=== PATIENT | female | born 1940 | race Caucasian/White ===

== ENCOUNTER 2017-05-19 10:06 | Emergency (ER) | payer MEDICARE ==
[~2017-05-19] VITALS: Ht 162.6 cm; Wt 86.2 kg
[2017-05-19] MEDS ORDERED: ULTRAM50 MG PO (10:55)
[2017-05-19] MEDS ORDERED: TRAZODONE HCL100 MG PO (10:55)
[2017-05-19] MEDS ORDERED: NEURONTIN600 MG PO (10:56)
== END 2017-05-19 12:20 | disposition home or self-care (01) ==
LOC: ED 10:06
DX: Z53.21 Procedure and treatment not carried out due to patient leaving prior to being seen by health care provider (principal)
CPT/HCPCS: 81001

== ENCOUNTER 2017-05-25 12:03 | Emergency (ER) | payer MEDICARE ==
[~2017-05-25] VITALS: Ht 162.6 cm; Wt 86.2 kg
[~2017-05-25 12:03] MED LIST: NEURONTIN600 MG PO; TRAZODONE HCL100 MG PO; ULTRAM50 MG PO
[2017-05-25] MEDS ORDERED: WELLBUTRIN SR150 MG PO (12:20)
[2017-05-25] MEDS ORDERED: CYMBALTA20 MG PO (12:21)
[2017-05-25] MEDS ORDERED: PYRIDIUM200 MG PO (12:45)
[2017-05-25] MEDS ORDERED: MACROBID 100 M100 MG PO (13:21)
[2017-05-25] MEDS ORDERED: AUGMENTIN 875-1 EACH PO (13:24)
== END 2017-05-25 14:30 | disposition home or self-care (01) ==
LOC: ED 12:03
DX: N39.0 Urinary tract infection, site not specified (principal); Z79.899 Other long term (current) drug therapy
CPT/HCPCS: 80053; 81001; 83605; 83690; 83880; 85025; 87088; 96361; 96374; 96375; 99283; J2405; J3010; J7040

== ENCOUNTER 2017-12-25 10:04 | Emergency (ER) | payer MEDICARE ==
[~2017-12-25] VITALS: Ht 162.6 cm; Wt 88.0 kg
[~2017-12-25 10:04] MED LIST changes: +AUGMENTIN 875-1 EACH PO; +CYMBALTA20 MG PO; +MACROBID 100 M100 MG PO; +PYRIDIUM200 MG PO; +WELLBUTRIN SR150 MG PO
[2017-12-25] MEDS ORDERED: CLARITIN10 M2 PO (10:30)
[2017-12-25] MEDS ORDERED: OMEPRAZOLE20 MG PO (10:31)
[2017-12-25] MEDS ORDERED: LEVOTHYROXINE50 MCG PO (10:31)
[2017-12-25] MEDS ORDERED: ZESTORETIC 20-1 EAC1 PO (10:31)
[2017-12-25] MEDS ORDERED: AMLODIPINE BESYL5 MG PO (10:32)
[2017-12-25] MEDS ORDERED: NOVOLOG FL100 UNIT/1 SUB-Q (10:32)
== END 2017-12-25 13:40 | disposition home or self-care (01) ==
LOC: ED 10:04
DX: R42 Dizziness and giddiness (principal); T40.4X5A Adverse effect of other synthetic narcotics, initial encounter; T42.6X5A Adverse effect of other antiepileptic and sedative-hypnotic drugs, initial encounter; E11.9 Type 2 diabetes mellitus without complications; I10 Essential (primary) hypertension; Z79.4 Long term (current) use of insulin; Z79.899 Other long term (current) drug therapy
CPT/HCPCS: 81001; 99284

== ENCOUNTER 2019-02-05 15:12 | Inpatient (IN) | payer MEDICARE ==
[~2019-02-05] VITALS: Ht 162.6 cm; Wt 78.6 kg
--- NOTE | ~2019-02-05 | DS ---
[facility] [address], [place] [address] Draft ADMISSION DATE: 02/08/2019 DISCHARGE DATE: 02/12/2019 REASON FOR ADMISSION: This 79-year-old white woman is a patient of Dr. Anastacia Blackmon of [place] from [facility]. In the past few weeks, she has been having episodes of right upper abdominal pain. Her evaluation included a gallbladder ultrasound, which was performed on December 30, 2018, showing no sign of stones and subsequently CCK-HIDA test on January 21, 2019, showing reproduction of her symptoms with right upper abdominal pain and ejection fraction of only 9%. Plans were being made for referral for consideration of cholecystectomy. In the days leading up to current admission, the patient had severe right upper abdominal pain, presented to the emergency room. She had subscapular right sided pain as well. She was evaluated by Dr. Neely with strong suspicion of acute acalculous cholecystitis. She was admitted for further evaluation and care. PHYSICAL EXAMINATION: GENERAL: At time of admission, showed a somewhat obese white woman, who looks to be not systemically toxic. Mucous membranes were mildly moist only. Trachea is midline. CHEST: Clear. HEART: Regular without murmur. ABDOMEN: Obese, but soft. There is tenderness in the epigastric and right subcostal area, most consistent with acute cholecystitis. LABORATORY STUDIES: Showed white count 9.2, hematocrit 32.7, platelets 150,000. Lipase 46. Chem profile, creatinine 1.26, glucose 101, calcium 10.7. Her lipase is 46. Urinalysis was negative, though she did have 5 white cells per high-power field. Ultrasound had shown a visible gallbladder wall without associated stones. HOSPITAL COURSE: The patient was admitted and given intravenous fluid resuscitation, parenteral pain medication, IV antibiotics. On February 06, 2019, she underwent laparoscopic cholecystectomy with intraoperative cholangiogram as well as laparoscopic liver biopsy for what was found to be a medial segment of left lobe of liver inflammatory change suggestive of low-grade cirrhosis. This was unexpected of course. Gallbladder was acutely inflamed and chronically inflamed as well. Cholangiogram was normal. She had omental adhesions inferior to the umbilicus and a supraumbilical incision had been used for operation. The operation was very straightforward overall. She was kept overnight for continued monitoring and by five in the morning on postop day 1, she seemed somewhat PATIENT NAME: CARLO MATHIAS DISCHARGE SUMMARY DATE OF : 40 REPORT #: [id number] PHYSICIAN: SATURNINO STAHL MD PCP: TIFFANY BLACKMON MD REPORT IS CONFIDENTIAL AND NOT TO BE RELEASED WITHOUT AUTHORIZATION [facility] [address] [place], [place] [address] Draft confused and distended, not herself, and had increasing drainage from the umbilical and epigastric incision sites somewhat bloody. She had not eaten that well postoperatively, but had been voiding well. She had no nausea, vomiting or retching. Her examination showed her to be somewhat pale and not jaundiced in any way. A CBC was obtained which showed a hematocrit of 21 (preoperative 32). Transfusion was promptly initiated, and given the findings and possibility of intraabdominal bleeding, she was returned to surgery where she underwent laparoscopy. A considerable amount of clot was noted in the central abdomen. Clot was suctioned free. Examination of the liver showed it to be hemostatic as regard to the biopsy site, in the subhepatic space though there was small amount of blood, it did not appear to be any active bleeding. Examination throughout was taken elsewhere including the region of the umbilicus. There was no sign of ongoing bleeding in the area. Two drains were placed, one lateral to the liver and the other in the subhepatic space. The patient remained reasonably hemodynamically stable with a systolic blood pressure of 105 and a pulse of 82, but within several hours, the drains began showing a considerable amount of fresh bleeding. Her blood pressure normalized to 140 systolic with pulse of 90 to 95, and given she was hemodynamically stable, a CT scan was performed with IV contrast despite a somewhat elevated creatinine (1.6). The noncontrast CT showed no sign of bleeding, but the contrast study did show a blush in the area of the omentum to the right and inferior to the umbilicus itself. On that basis, she underwent laparotomy through a midline incision in the region of the umbilicus and prior low midline incision. Considerable amount of clot and so forth was evacuated from the abdomen. The abdomen had no sign of bleeding. As the bleeding was occultly localized in the omentum inferior to the umbilicus itself, omentectomy was undertaken for control of bleeding. Irrigation was undertaken. There was no further bleeding. The drains that were placed previously were left in situ. She was carefully monitored postoperatively and showed no sign of recurrent bleeding. She did have a drift of her hematocrit. She had been given 4 units of fresh frozen plasma as well as platelets considering she ultimately had a 7-unit transfusion overall. The patient had a fair amount of confusion, so forth. This was attributed to essentially three general anesthetics within a 48-hour period. Additionally, she had this significant transfusion as noted. She was noted to have no further bleeding and her drains were removed. A small dehiscence of the superior aspect of the incision was secured with interrupted nylon suture at the bedside under local anesthesia, this represented only skin dehiscence and it was quite limited also. She had progressive improvement and was transferred to the floor where she was advanced in her diet. By time of discharge, she is ambulating well, tolerating a regular diet completely well as well as oral medication. Her disorientation improved quite markedly PATIENT NAME: CARLO MATHIAS DISCHARGE SUMMARY DATE OF : 40 REPORT #: [id number] PHYSICIAN: SATURNINO STAHL MD PCP: TIFFANY BLACKMON MD REPORT IS CONFIDENTIAL AND NOT TO BE RELEASED WITHOUT AUTHORIZATION [facility] [address] [place], [place] [address] Draft and she is back to baseline at time of discharge. I suspect the anesthesia as well as some minimal opiate use postoperatively was responsible for that. Consultation was undertaken with the medical hospitalist. Her medications were somewhat adjusted to include amlodipine as an adjunct to blood pressure control. FOLLOWUP PLAN: She does have an abdominal binder in place. She is to return to see me in approximately 4 weeks. She will continue to follow up with her usual physician Leonidas [facility]. MEDICATIONS: Her new medications will include: 1. Amlodipine 10 mg p.o. daily for hypertension #30, refill none. 2. Extra-strength Tylenol 500 mg tablets two tabs q.6 hours p.r.n. pain #60. 3. Lisinopril 10 mg p.o. daily. 4. Calcium carbonate tablet one p.o. 3-4 times daily. 5. Atorvastatin 20 mg p.o. daily. 6. Metoprolol 50 mg p.o. daily. 7. Cymbalta 60 mg p.o. daily. 8. Escitalopram 5 mg p.o. daily. 9. Trazodone 20 mg p.o. daily. 10. Metformin (Glucophage) 500 mg p.o. b.i.d. 11. Actos 15 mg p.o. daily. 12. Synthroid 50 mcg p.o. daily. She will discontinue her diclofenac and meloxicam and note is made of amlodipine change of 5 mg to 10 mg. DISCHARGE DIAGNOSES: 1. Acalculous chronic and acute cholecystitis, status post laparoscopic cholecystectomy with intraoperative cholangiogram. 2. Postoperative bleeding requiring initially laparoscopy, peritoneal lavage, placement of drains and subsequent open laparotomy with partial omentectomy for intraparenchymal bleeding of omentum and hemoperitoneum. 3. Hypertension. 4. Diabetes mellitus. 5. Hypothyroidism. 6. Anxiety. 7. Dyslipidemia. PATIENT NAME: CARLO MATHIAS DISCHARGE SUMMARY DATE OF : 40 REPORT #: [id number] PHYSICIAN: SATURNINO STAHL MD PCP: TIFFANY BLACKMON MD REPORT IS CONFIDENTIAL AND NOT TO BE RELEASED WITHOUT AUTHORIZATION [facility] [address] [place] [id number] Draft MD BRIDGET Davis/PARISL /[id number] cc: DO Mario Ayoub MD Copies: ANASTACIA BLACKMON LOHITH VEERAPPA MD ~ PATIENT NAME: CARLO MATHIAS DISCHARGE SUMMARY DATE OF : 40 REPORT #: [id number] PHYSICIAN: SATURNINO STAHL MD PCP: TIFFANY BLACKMON MD REPORT IS CONFIDENTIAL AND NOT TO BE RELEASED WITHOUT AUTHORIZATION
[~2019-02-05 15:12] MED LIST changes: +AMLODIPINE BESYL5 MG PO; +CLARITIN10 M2 PO; +LEVOTHYROXINE50 MCG PO; +NOVOLOG FL100 UNIT/1 SUB-Q; +OMEPRAZOLE20 MG PO; +ZESTORETIC 20-1 EAC1 PO
--- OUTSIDE RECORDS SUMMARY | 2019-02-05 15:14 | XMS ---
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 [place] VISIT COUNT (12 MO.) Jamir Abreu TOTAL 1 NOTE: Visits indicate total known visits. ED/UCC VISIT TRACKING (12 MO.) 02/05/2019 15:12 [facility] OR TYPE: Emergency COMPLAINT: - ABDOMINAL PAIN/ DIZZY INPATIENT VISIT TRACKING (12 MO.) No inpatient visits to display in this time frame [email or web address]
[2019-02-05] MEDS ORDERED: GLUCOPHAGE500 MG PO (15:53)
[2019-02-05] MEDS ORDERED: ACTOS15 MG PO (15:54)
[2019-02-05] MEDS ORDERED: LISINOPRIL10 MG PO (15:54)
[2019-02-05] MEDS ORDERED: METOPROLOL SUCC50 MG PO (15:55)
[2019-02-05] MEDS ORDERED: ESCITALOPRAM OXA5 MG PO (15:55)
[2019-02-05] MEDS ORDERED: ATORVASTATIN CA20 MG PO (15:56)
[2019-02-05] MEDS ORDERED: ONDANSETRON ODT8 MG PO (16:49)
--- NOTE | 2019-02-05 18:53 | NUR ---
184: PT ARRIVED TO MED-SURG VIA [facility] [employer]. PT ORIENTED TO THE ROOM AND SCD'S PLACED. PT STATES SHE HAS PAIN RATED AT A 7/10 IN HER RIGHT UPPER QUAD PAIN WHICH IS ACCEPTABLE TO HER AT THIS TIME. PT GIVEN CALL DE LEON AND INSTRUCTED IN IT'S USE.
--- NOTE | 2019-02-05 19:35 | NUR ---
patient needed assistance going to the restroom. She got dressed in her night gown and requested fresh ice water. nothing further was needed at this time.
--- NOTE | 2019-02-05 20:03 | NUR ---
ADMISSION COMPLETE, IV FLUIDS INFUSING PER EMAR WNL, PT RESTING IN BED, AOX4, APPROPRIATE, SCD'S ON, DR. STAHL HAS BEEN TO PT'S ROOM TO DISCUSS PROCEDURE SET FOR TOMORROW, PT ORIENTED TO ROOM. CALL LIGHT WITHIN REACH.
--- NOTE | 2019-02-05 20:27 | NUR ---
VITALS AND I&OS DONE AND CHARTED. HELPED PT TO THE BATHROOM AND BACK TO BED WITH HER FWW. INFORMED ROHINI ARENAS OF B\P
--- NOTE | 2019-02-05 20:30 | NUR ---
EVENING MEDS ADMINISTERED, PT'S VSS, PT RESTING IN BED, AOX4, APPROPRIATE, PT C/O PAIN RELATED TO RUQ, PRN PAIN MEDICATION GIVEN PER EMAR. PT TOLERATED WELL PT ON RA, PT'S BT ACTIVE, ABD TENDER, SCD'S ON. PT DENIES ANY NAUSEA OR VOMITING, NO FURTHER NEEDS AT THIS TIME. CALL LIGHT WITHIN REACH.
--- NOTE | 2019-02-05 21:51 | NUR ---
PT'S IV PUMP WAS BEEPING, IT IS INFUSING FINE NOW. PT IS TRYING TO REST AND DENIES FURTHER NEEDS. CALL LIGHT IS WITHIN REACH.
--- NOTE | 2019-02-05 23:45 | NUR ---
PT RESTING IN BED, EYES CLOSED, BREATHS EVEN, UNLABORED, NO NEEDS AT THIS TIME, CALL LIGHT WIHTIN REACH. FALL PRECAUTIONS IN PLACE. IV FLUIDS INFUSING PER EMAR WNL. SCD'S ON.
--- NOTE | 2019-02-06 00:28 | NUR ---
HELPED PT TO THE BATHROOM AND BACK TO BED WITH HER FWW. BEDSIDE TABLE AND CALL LIGHT IN REACH. SHE NEEDS NOTHING MORE AT THIS TIME.
--- NOTE | 2019-02-06 02:17 | NUR ---
PT UP TO BATHROOM WITH AHSAN MADERA, PT BACK TO BED, IV FLUIDS INFUSING PER EMAR WNL, SCHEDULED ABX ADMINISTERED, PT C/O 11/25 PAIN RELATED TO ABD, PT GIVEN PRN PAIN MEDICATION PER EMAR. PT DENIES FURTHER NEEDS AT THIS TIME, SCD'S ON, CALL LIGHT WITHIN REACH. FALL PRECAUTIONS IN PLACE.
--- NOTE | 2019-02-06 04:59 | NUR ---
PT AOX4, APPROPRIATE, PT RECEIVED PRN PAIN MEDICATION X2 THIS SHIFT RELATED TO ABD PAIN, NO C/O NAUSEA OR EMESIS, PT HAS BEEN NPO SINCE MIDNIGHT, IV FLUIDS INFUSED PER EMAR, SCD'S ON, PT'S VSS, UO QS, USES CALL LIGHT APPROPRIATELY.
--- NOTE | 2019-02-06 09:04 | NUR ---
ADMIN MORPINE 2MG IVP FOR REPORTS OF 7/10 ABD PAIN.
--- NOTE | 2019-02-06 09:21 | NUR ---
IN TO COMPLETE PTS INITIAL CASE MANAGEMENT ASSESSMENT. PT STATES SHE HAS NO CONCERNS AT HOME.
--- NOTE | 2019-02-06 11:07 | NUR ---
Dr. Peraza in to see pt. Pt to go to surgery in approx an hr's time. VORB to admin norvasc, lisinopril, and metoprolol po with sip of water. Pt has no needs at this time. Call light within reach. of pt.
--- NOTE | 2019-02-06 12:12 | NUR ---
PT WENT OFF TO SURGERY DEPT.
[2019-02-06] MEDS ORDERED: DICLOFENAC SOD100 G1 TOP (12:13)
[2019-02-06] MEDS ORDERED: TRAZODONE HCL50 MG PO (12:14)
[2019-02-06] MEDS ORDERED: MELOXICAM15 MG PO (12:20)
--- NOTE | 2019-02-06 13:04 | NUR ---
02/06/19 Lindsey4 Ava Bajwa- PT ARRIVES TO PACU FROM OR ON 8 L VIA MASK AND IS REACTIVE TO VERBAL STIMULUS. PT MOVES AROUND IN BED AND FOLLOWS COMMANDS. VSS. PT HAD GENERAL ANESTHESIA FOR LAP DAWN PROCEDURE, CHOLANGIOGRAM, AND LIVER BX. ALEXANDRA RADFORD AT BEDSIDE. PT SHAKES HEAD TO HAVING PAIN AND DENIES NAUSEA.
[2019-02-06] MEDS ORDERED: ENDOCET 7.5-321 EACH PO (13:15)
[2019-02-06] MEDS ORDERED: TYLENOL EXTRA500 MG PO (13:16)
--- NOTE | 2019-02-06 14:12 | NUR ---
PT BACK FROM SURGERY DEPT. PT SLEEPY, AROUSABLE TO VERBAL STIMULI. PT DENIES PAIN AT THIS TIME. RESP EVEN AND NON LABORED. VS STABLE, OXYGEN SAT LEVEL IS 95% ON 3L PER NC. HOB ELEVATED. PER REPORT PT NEAUSEATED IN PACU. X4 LAP SITE INCISION TO ABD; ONE JUST SUPERIOR TO AMBILICUS, AND THREE TO RIGHT ABD QUADRANT, STERI STRIPS INTACT ON ALL, SMALL SAROSANG DRAINAGE NOTED FROM PUNCTURE SITES X4. PT DENIES NEED TO VOID. CPOX INTACT. CALL LIGHT WITHIN REACH. NO NEEDS AT THIS TIME.
--- NOTE | 2019-02-06 15:41 | NUR ---
PT ADMIN MORPHINE 4MG IVP FOR REPORTS OF 8/10 ABD PAIN. PT STILL SLEEPING ON/OFF. VS STABLE, PT TO RA, RESP EVEN AND NON LABORED, SAT LEVEL 95%. FAMILY AT BEDSIDE. PERSONAL SUPPLIES AND CALL LIGHT WITHIN REACH. NO NEEDS AT THIS TIME.
--- NOTE | 2019-02-06 16:26 | NUR ---
PT IN BED, EYES CLOSED, APPEARS TO BE SLEEPING. RESP EVEN AND NON LABORED, OXYGEN SAT LEVEL 95% ON RA. PT AROUSABLE TO VERBAL STIMULI. PAIN TO ABD 4/10. PT RECENTLY VOIDED. PERSONAL SUPPLIES AND CALL LIGHT WITHIN REACH.
--- NOTE | 2019-02-06 16:59 | NUR ---
EYES CLOSED, PT APPEARS TO BE SLEEPING. RR AND VS STABLE. CPOX INTACT, SAT LEVEL 96%. PT APPEARS COMFORTABLE, FLACC SCALE 0/10. IV FLUIDS INFUSING. PERSONAL SUPPLIES AND CALL LIGHT WITHIN REACH.
--- NOTE | 2019-02-06 17:30 | NUR ---
LAP CHOLEY TODAY. VS STABLE, RA, CPOX INTACT. SLEEPY AFTER SURGERY-NOT YET ATE ANYTHING. PRN MORPHINE IVP. D5LR@85ML/HR. NAUSEATED; IMPROVED. X4 LAP SITES TO ABD; SAROSANG LEAKAGE NOTED. BED ALARM INTACT AT ALL TIMES.
--- NOTE | 2019-02-06 18:25 | NUR ---
ADMIN ZOFRAN 4MG AND MORPHINE 4MG IVP FOR REPORTS OF NAUSEA AND 8/10 ABD PAIN.
--- NOTE | 2019-02-06 18:35 | NUR ---
D/T CONFUSION PT MOVED CLOSER TO RN STATION TO RM #120.
--- NOTE | 2019-02-06 20:54 | NUR ---
PT SET OFF BED ALARM AND CALLED OUT FOR HELP. UPON ENTERING ROOM SHE STATES SHE "HAS TO POOP" AND SHE FEELS LIKE VOMITING. SHE ALSO STATES THAT HER PAIN IS "A 12" AND "SOMETHING IS WRONG". PT FEELS COOL TO THE TOUCH. VS TAKEN AND ENTERED. ADMINISTERED 4MG IV MORPHINE FOR SEVERE PAIN. PT'S GOWN AND BEDDING HAS A MODERATE AMOUNT OF SEROSANGUINOUS DRAINAGE. PT IS ORIENTED TO NAME AND . AFTER MEDICATION WE WILL GET PT UP TO BSC.
--- NOTE | 2019-02-06 21:30 | NUR ---
Pt skin pale, cool and clammy, CBG was 258. c/o 16-20/10 abd pain. Was medicated with Morphine 4mg IV by charge nurse. with fair to no pain relief. Currenlty drowsy, asnwers appropriateely to name, place, date, but unable to state surgery or MD who performed surgery. Pupils KARL. Speech clear, able to answer other questions appropriately, good CMS of all other extremities. IVF infusing w/o problems. Up to BSC with 2-3PA, voided, back to bed, tolerated fair, weak LE. SCDS in place. On room air, IS at bedside, CPOX readings at 96-100%, P64, no resp distress noted. 4 abd lap siteswith ss in place, open to air, lap site above umbilical area and umbilicus area lap site saturated with fresh red colored drainage, pt saturated 4x4. ABD covered with tape applied to umbilius area. 2x2 covered with tape applied to upper umbilical lap site. Call light at bedside, bed alarm on. Pt coopertive with assessment, lungs clear.
--- NOTE | 2019-02-06 23:43 | NUR ---
PT AWAKENS EASILY, STILL VERY DROWSY, PALE SKIN, WARM AND DRY NOW. ABD DRESSING INTACT WITH SMALL AMOUNT OF SHADOWING ON UMBILICAL DRESSING. UNABLE TO STATE IF SHE IS PASSING GAS. ABD TENDER, ROWAN. SCDS IN PLACE, TURNS SELF IN BED, CPOX IN PLACE SATS 96% , P69, R16
--- NOTE | 2019-02-07 03:38 | NUR ---
PT TRYING TO GET OUT OF BED, BED ALARM ON. UP TO BSC, VOIDED SMALL AMOUNT. CONFUSED. SKIN JAUNDICED, LARGE AMOUNT OF SANGUINEOUS DRAINAGE OVEFR UPPER ABD LAP SITE DSG SATURATED. UMBILICAL AREA WITH SATURATED ABD. REINFORCED. PROCEDURE EXPLAINED, WILL REASSESS AND REINFORCE WITH MEPILEX DRESSING, WILL NOTIFY DR STAHL IF IT CONTINUES TO SATURATE DRESSING.
--- NOTE | 2019-02-07 05:23 | NUR ---
0445- abd dressing applied earlier to umbilical area and top lap site were completely saturated. skin cleansed and Mepilex pressure dressing applied to both sites, and covered with Opsite. Pt alert, cooperative with procedures. Skin jaundiced, eyes sclera clear. Pt alrt to slef, place but not situation. cartridge assembling machine adjuster strong. IVF infusing, Bed alarm on. Bed linen and gown changed. 0505-Pt turning around in bed, trying to get out of bed, noticed that Mepilex dressing that was applied earlier was saturated with red drainage.reinforced with abd dressing and tape. 0510 - while having pt stand up to change bed, pt become unsteady, very strong clinical laboratory medical director on walker and was unable to let go of walker. Non responsive, eyes were open, fixed non reactive pupils, respirations up to 24, fast and shallow, skin jaundiced, cool to touch, dry. Pt lowered to bed, O2 sats at this time have been 96-100%, pulse 60-81bpm. bp 111/49. this took only like 2 seconds. No other abnormal simptoms noted. Once she reacted to male nurses voice. Pt alert to self, place, date, president . 0532 - Dr Higginbotham notified vua phone [address] higginbotham here
--- NOTE | 2019-02-07 05:47 | NUR ---
New orders for CBC, CHem 20, PT,PTT ordered by dr Page. NPO status too lab notified to make labs stat. Pt awake. wants to talk to daughter, Daughter called via phone "I will be in to see her here shortly stated". Pt calm, no resp distress, CPOX sats 100% P76, R18 now, more calmer. IVF infusing.
--- NOTE | 2019-02-07 06:10 | OR ---
[facility] [address], [place] [address] Signed DATE OF OPERATION: 02/06/2019 SURGEON: Saturnino Stahl MD PREOPERATIVE DIAGNOSIS: Acute acalculous cholecystitis. POSTOPERATIVE DIAGNOSES: 1. Acute acalculous cholecystitis. 2. Chronic hepatic disease. PROCEDURES: 1. Laparoscopic cholecystectomy with intraoperative cholangiogram. 2. Surgeon-directed fluoroscopy. 3. Laparoscopic liver biopsy, medial segment left lobe of liver. ANESTHESIA: General endotracheal; Lyn Brown, YARD ATTENDANT; and local 20 mL of 0.25% Marcaine with epinephrine. INDICATIONS: This 79-year-old white woman was admitted through the emergency room yesterday having had chronic recurrent bouts of right upper abdominal pain. She was evaluated by her physician, Dr. Lee britton, which include a gallbladder ultrasound that was performed and subsequently a CCK-HIDA test. The HIDA scan showed an ejection fraction of only 9% and reproduction of her symptoms. In the meantime, referral for consideration of elective cholecystectomy, she had significant and severe and unrelenting right subcostal pain consistent with acute cholecystitis. She was admitted, given fluid resuscitation, IV antibiotics, and so forth and is now to undergo cholecystectomy. She understands the risks of bleeding, infection, bile duct injury, need for open procedure, and other unforeseen complications and wished to proceed. FINDINGS: The gallbladder was acutely inflamed and chronically inflamed as well. Once excised, there was no evidence of stones within the gallbladder and chronic inflammation of the mucosa was noted. Cholangiogram was normal. I did not expect, but nevertheless present, was chronic inflammatory changes of the liver itself. A biopsy was taken of liver in the medial segment of the left lobe. Electronically Signed By: SATURNINO STAHL MD 02/07/19 0610 PATIENT NAME: CARLO MATHIAS OPERATIVE REPORT DATE OF : 40 REPORT #: [id number] PHYSICIAN: SATURNINO STAHL MD PCP: TIFFANY BLACKMON MD REPORT IS CONFIDENTIAL AND NOT TO BE RELEASED WITHOUT AUTHORIZATION [facility] [address], [place] [address] Signed DESCRIPTION OF PROCEDURE: The patient was brought to the operating room, given a general endotracheal anesthetic. Preoperative antibiotics had been given. Sequential compression device stockings were used and heparin subcutaneously administered. The abdomen was prepared with a chlorhexidine solution and draped sterilely. She has a prior low midline incision. On that basis, a supraumbilical incision was made and using an open Vignesh cannula technique, pneumoperitoneum was achieved to a level of 14 mmHg of carbon dioxide gas. Intraabdominal inspection showed no sign of ascites or carcinomatosis, but did show an acutely inflamed gallbladder. Additionally, chronic inflammatory changes of the liver were noted as well. There was no sign of macronodular cirrhosis proper, but a low-grade cirrhotic change was noted. Three additional trocars were placed in usual configuration in the subxiphoid, right midclavicular, and right anterior axillary line. The gallbladder was elevated cephalad and retracted laterally and using blunt and electrocautery dissection, the triangle of Calot was dissected free. Ultimately, the cystic duct was well identified as were the cystic arterial branches. The cystic artery was doubly clipped and subsequently divided. Ultimately, a clip was applied across gallbladder cystic duct junction. A transverse choledochotomy was made in the cystic duct and retrograde milking of the cystic duct did not produce any stones or sludge. Attempts at placing a catheter into the cystic duct were quite unsuccessful and therefore an additional choledochotomy was made lower down on the duct allowing for egress of clear bile. This site was easily accessed for cholangiogram and intraoperative cholangiogram was then under taken. Intraoperative cholangiogram showed free flow of contrast in biliary tree with prompt emptying into the duodenum and retrograde filling of the biliary tree as well. There was no sign of filling defect, biliary anomalies, or other problem. The catheter was removed and the cystic duct was triply clipped and divided and gallbladder dissected free in a retrograde fashion using electrocautery. Small leak occurred in the dissection with egress of clear bile. The gallbladder was placed in an endobag and extracted through the supraumbilical port without problem. Reinspection of subhepatic space showed no sign of bile leak, bleeding, or other problems. Excess irrigation fluid was suctioned free. Gallbladder was opened on the back table and found to have chronic inflammatory change of the mucosa. No sign of neoplasm. No stones. Trocars were removed under direct visualization showing no sign of bleeding. The infraumbilical fascial incision was reapproximated with interrupted 0 Vicryl suture. All wounds were copiously irrigated and skin closed with interrupted 3-0 Vicryl. Steri-Strips were applied. The patient was ultimately extubated and transferred to recovery in good condition having suffered no complications. Sponge, needle, and instrument counts were reported as correct x3. Electronically Signed By: SATURNINO STAHL MD 02/07/19 0610 PATIENT NAME: CARLO MATHIAS OPERATIVE REPORT DATE OF : 40 REPORT #: [id number] PHYSICIAN: SATURNINO TSAHL MD PCP: TIFFANY BLACKMON MD REPORT IS CONFIDENTIAL AND NOT TO BE RELEASED WITHOUT AUTHORIZATION [place] [id number] [place], [place] [address] Signed MD BRIDGET Davis/MODL /[id number] cc: MD Dr. Lee Zayas Copies: TONY DENNIS MD ~ Electronically Signed By: SATURNINO STAHL MD 02/07/19 0610 PATIENT NAME: CARLO MATHIAS OPERATIVE REPORT DATE OF : 40 REPORT #: [id number] PHYSICIAN: SATURNINO STAHL MD PCP: TIFFANY BLACKMON MD REPORT IS CONFIDENTIAL AND NOT TO BE RELEASED WITHOUT AUTHORIZATION
--- NOTE | 2019-02-07 06:15 | NUR ---
PT CALLED OUT FOR HELP, UPON ENTERING THE ROOM PT STATED SHE WAS DIZZY. VS TAKEN AND DR STAHL ENTERED THE ROOM GIVING VERBAL ORDERS FOR TYPE & SCREEN AND CROSSMATCH FOR 2 UNITS OF BLOOD. ORDERS ENTERED AND SPOKE WITH LAB.
--- NOTE | 2019-02-07 06:26 | NUR ---
PT MEDICATED WITH MORPHINE 2MG IV, 12/26 ABD PAIN. ABD DRESSING WITH SANGUINEOUS DRAINAGE. DR STAHL CHANGED DRESSING. PTS ABD UPPER LAP SITE SEEMS TO OOZE MORE WHEN PT TURNS TO EITHER SIODE AND PUT PRESSURE ON ABD. BLOOD HERE TO DRAW BLOOD TYPE AND CROSS
--- NOTE | 2019-02-07 07:32 | NUR ---
LAB CALLED IN CRITICAL LAB VALUES, DR. STAHL NOTIFIED IN PERSON.
--- NOTE | 2019-02-07 07:40 | NUR ---
Pt awake, alert and oriented x2, confused to situation at times. Pt appears pale. abd has small amount of sarosang drainage noted. VORB from Dr. Peraza to starte LR @ 125ml/hr, infuse 2 units of blood shemar and obtain a second IV line. Family at bedside. Consent obtained for surgery and blood. Pt has no needs. Personal supplies and call light within reach.
--- NOTE | 2019-02-07 07:47 | NUR ---
THIS RN TO ROOM TO ASSIST WITH PIV START. 1 PREVIOUS FAILED ATTEMPT BY ROHINI SANDOVAL. PIV STARTED PER PROTOCOL BY THIS RN. 18G TO RAC. BRISK BLOOD RETURN NOTED. PIV SALINE LOCKED AT THIS TIME. PTS RN AT BEDSIDE. BED RAILS UP.
--- NOTE | 2019-02-07 08:14 | NUR ---
2 UNITS OF BLOOD STARTED ON PT. DOUBLE RN CHECK COMPLETED PRIOR TO ADMIN. VS TAKEN AND STABLE. EDUCATION PROVIDED TO PT REGARDING POSSIBLE BLOOD TRANSFUSION REACTION. PT VERBALIZED HER UNDERSTANDING.
--- NOTE | 2019-02-07 10:38 | NUR ---
02/07/[address] [place] [address],[place] [id number]- PT ARRIVES FROM OR ON 6 L VIA MASK. PT MOVING AROUND IN BED AND CONFUSED/DISORIENTED. PT DOESN'T KNOW WHERE SHE IS. ALEXANDRA RADFORD AT BEDSIDE GIVES FENTANYL IV. PT AGITATED AND TRYING TO GET OUT OF BED. VSS. 3RD UNIT PRBCS HANGING AND ALMOST COMPLETELY INFUSED. 2 DRAIN SITES AND 4 LAP SITES.
--- NOTE | 2019-02-07 11:11 | NUR ---
PT RECEIVED FROM PACU NURSE TO ROOM. REPORT RECEIVED. PT IN BED, CONFUSED. INO X 2 DRAINED FOR 50 ML TOTAL. DRESSING ON RIGHT SIDE ABDOMEN SATURATED WITH DINORAH RED BLOOD. SCOPE DRESSING NEAR UBMILICUS AND MID ABDOMEN INTACT WITH DRIED BLOOD NOTED. LEMUS DRAINING CLEAR YELLOW URINE. O2 2L NC IN PLACE. SCD'S IN PLACE. WARM BLANKET X 2 PROVIDED. EXTREMITIES COOL, DELAYED CAP REFILL NOTED IN HANDS AND FEET. MOTTLING NOTED IN THIGHS.
--- NOTE | 2019-02-07 11:45 | NUR ---
PT FAMILY IN ROOM. PT STILL SOMEWHAT CONFUSED. SLEEPY BUT EASILY AROUSED TO VERBAL STIMULI.
--- NOTE | 2019-02-07 12:27 | NUR ---
PT C/O HAVING TO URINATE DESPITE LEMUS CATHETER DRAINING URINE. BLADDER SCANNED FOR 7 ML. REPOSITIONED PT TO LEFT SIDE FOR COMFORT, WARM BLANKETS GIVEN. BED ALARM ON FOR SAFETY.
--- NOTE | 2019-02-07 12:50 | NUR ---
NEW ORDERS RECEIVED FROM . PT MEDICATED WITH 1MG PRN MORPHINE FOR C/O 8 ABD PAIN. PT STILL DISORIENTED, ORIENTED TO SELF AT THIS TIME. FAMILY IN ROOM.
--- NOTE | 2019-02-07 14:07 | NUR ---
PT IN BED, DOZING ON AND OFF. STILL CONFUSED AT TIMES AND NOT ANSWERING QUESTIONS APPROPRIATELY. BS 169, INSULIN GIVEN PER ORDERS. O2 SATS 97% ON RA. RR EVEN AND UNLABORED. STERI STRIPS UNCHANGED FROM PREVIOUS ASSESSMENT. RIGHT SIDE DRESSING INTACT, SATURATED WITH BLOOD. INO'S INTACT, LEMUS DRAINING CLEAR YELLOW URINE. BED ALARM ON, CALL LIGHT IN REACH.
--- NOTE | 2019-02-07 14:21 | NUR ---
PATIENT'S FAMILY IN ROOM AT THIS TIME. PT STILL SOMEWHAT CONFUSED. 1400 LAB DRAW TO BE DRAWN. CONTINUE TO MONITOR.
--- NOTE | 2019-02-07 14:25 | NUR ---
CBC DRAWN AT THIS TIME FROM PT'S IV SITE ON RIGHT AC.
--- NOTE | 2019-02-07 15:09 | NUR ---
ORDERS REC'D FROM DR. STAHL ON PHONE TO GIVE 2 MORE UNITS OF PRBCs, A 4 PACK OF FFP, AND TAKE PATIENT DOWN FOR A CT SCAN OF HER ABDOMEN WITH IV CONTRAST. PATIENT'S FAMILY UPDATED.
--- NOTE | 2019-02-07 15:27 | NUR ---
DAMPER WORKER HERE TO DISCUSS PT'S RENAL FUNCTION AND PENDING CT ORDER WITH CONTRAST. DISCUSSED WITH DR. STAHL AGAIN ON THE PHONE AND ORDER REC'D TO PROCEED WITH CT AT THIS TIME. PT RECEIVING A UNIT OF BLOOD RIGHT NOW, HER 4TH FOR THE DAY.
--- NOTE | 2019-02-07 15:31 | NUR ---
PATIENT REPEATEDLY SAYING TO HER FAMILY, "NONE OF YOU ARE GOING TO BE DONORS." PATIENT REMAINS SOMEWHAT CONFUSED AND IS UNDER THE IMPRESSION THAT HER FAMILY IS GOING TO BE DONATING SOMETHING FOR HER. REASSURED PATIENT THAT NOBODY IS GOING TO DONATE ANYTHING AT THIS TIME, AND THAT SHE IS GETTING BLOOD THAT WAS PREVIOUSLY DONATED.
--- NOTE | 2019-02-07 16:27 | NUR ---
PATIENT BACK FROM CT. PT KEEPS SAYING, "I KNWO I'M FULL OF CANCER. IT'S IN MY BACK AND IT'S IN MY GUT. I JUST WANT TO GET IT OVER WITH." BLOOD STILL INFUSING AT THIS TIME. SP02 92 AT THIS TIME. PT PLACED BACK ON OXYGEN. LAST BP 146/46, HEART RATE 90s.
--- NOTE | 2019-02-07 16:53 | NUR ---
PRIOR TO CT SCAN, PATIENT WAS GIVEN A 250 ML BOLUS PER PROTOCOL, AND AN ADDITIONAL [address] WAS DONE WITH CONTRAST.
--- NOTE | 2019-02-07 18:31 | NUR ---
DISCUSSED WITH DR. STAHL CT RESULTS. TO BE IN TO DISCUSS WITH FAMILY AND PATIENT THIS EVENING. ORDER REC'D TO GIVEN TRANSEXEMIC ACID. HEART RATE HAS BEEN TRENDING UP AND IS CURRENTLY AT 101. PT STARTING TO BECOME NAUSEOUS. IV ZOFRAN TO BE GIVEN.
--- NOTE | 2019-02-07 19:50 | NUR ---
REPORT FROM DAY SHIFT. DR STAHL IN TO DISCUSS PLAN OF CARE WITH PT AND PTS FAMILY, BENEFITS/RISKS OF ANOTHER SURGERY TONIGHT TO ADDRESS PTS CONTINUED BLOOD LOSS, PT AGREES TO SURGERY. PT IS AWAKE AND ALERT, INO'S RECENTLY EMPTIED BY DAY NURSE, AND ALREADY HAS FAIR AMOUNT OF RED DRAINAGE IN BOTH. PT IS PAINFUL WITH TURNING TO RIGHT SIDE IN UPPER SHOULDER AREA, REPOSITIONED AND PT NOW COMFORTABLE. OXYGEN WAS 93% ON ROOM AIR SO O2/NC REAPPLIED AT 2L AND SPO2 BACK UP TO 96%. HR HIGH 90'S.
--- NOTE | 2019-02-07 19:58 | NUR ---
ANESTHESIA IN TALKING WITH PT AND GRANDDAUGHTER.
--- NOTE | 2019-02-07 20:19 | NUR ---
PT LEFT FLOOR TO OR WITH OR NURSE.
--- NOTE | 2019-02-07 23:14 | NUR ---
PT RETURNED FROM OR WITH RT, DR STAHL, ANESTHESIA AND PACU NURSE. VSS. PT AROUSABLE TO VOICE THEN BACK TO SLEEP. VENT BEING SET UP BY RT.
--- NOTE | 2019-02-07 23:20 | NUR ---
02/07/19 [address]- PT TAKEN TO CCU FOR RECOVERY ON VENT. RESP THERAPY AND CCU RN IN ROOM. ALEXANDRA RADFORD AT BEDSIDE. PT NON-AROUSABLE. PT HAD GENERAL ANESTHESIA FOR LAPAROTOMY PROCEDURE WITH OMENTUM EXC FOR POST OP BLEEDING. 1 INCISION DOWN UMBILICUS C/D/I WITH MEPILEX IN PLACE. SATS 100%. 2224- PT TRANSFERRED TO VENT SUPPORT BY ASHLI BARRIOS. PT STARTING TO AROUSE AND MOVE IN BED. 2229- PT OPENING EYES AND SHAKES HEAD WHEN ASKED IF SHE HAS PAIN. IMAGING IN ROOM TO CONFIRM TUBE PLACEMENT. PT GIVEN IV PAIN MEDS BY CCU RN. PROPOFOL DRIP OREDERED. 2241- PROPOFOL DRIP STARTED. PT SLOWLY CALMING DOWN. VSS. 2 CCU RNS IN ROOM WITH ASHLI BARRIOS. 2300- PT RESTING IN BED QUIETLY ON VENT. ABG AND LABS DRAWN PER ORDERS. BLOOD SUGAR 144. 2 INO DRAINS DRAINING DILUTE RED DRAIANGE. CARE ASSUMED BY CCU RN
--- NOTE | 2019-02-07 23:32 | NUR ---
ABG SENT BY RT. DR PIMENTEL IN TO SEE PT.
--- NOTE | 2019-02-08 04:15 | NUR ---
ASSESSMENT DONE, RT IN TO DO VENT CHECK, PT REPOSITIONED.
--- NOTE | 2019-02-08 06:28 | NUR ---
PLATELETS READY FROM LAB, INFUSION OF FIRST BAG STARTED, PT СЕРГЕЙ WELL AFTER FIRST 15 MINUTES. INO DRAINAGE HAS CONTINUED TO SLOW AND BECOME MORE SEROUS ALTHOUGH STILL REDDISH. PROPROFOL GTT INFUSING AT 60MCG/KG/MIN AT THIS TIME. RASS IS -3.
--- NOTE | 2019-02-08 07:33 | NUR ---
UPDATE TO DR STAHL, ORDER GIVEN TO BEGIN EXTUBATION OF PT, GIVE MORPHINE FOR PAIN.
--- NOTE | 2019-02-08 07:33 | NUR ---
PATIENT TO BE EXTUBATED THIS AM SOON ABLE TO. NEW ORDER FOR MORPHINE FOR PAIN. PROPOFOL AT 50 MCG/KG/MIN AT THIS TIME, BUT WILL BE TITRATING DOWN. VENT SETTINGS ARE CMV 16, VT 450, PEEP 5, FI02 32%. PT HAS A 7.0 ETT. PATIENT EASILY AWAKENS TO STIMULI AND BECOMES RESTLESS IN BED. RESTRAINTS REMAIN IN PLACE, BILATERALLY ON HER WRISTS. SCDs ON. PLATELETS FINISHED AT 0730. CONTINUE TO MONITOR.
--- NOTE | 2019-02-08 07:43 | NUR ---
PROPOFOL DRIP RATE TITRATED TO 40MCG/KG/MIN. RASS SCORE -3.
--- NOTE | 2019-02-08 07:49 | NUR ---
PROPOFOL TURNED DOWN TO 30 MCG/KG/MIN AT THIS TIME.
--- NOTE | 2019-02-08 08:04 | NUR ---
MORPHINE GIVEN FOR PAIN. PT BECOMING MORE RESPONSIVE AND RESTLESS WELL.
--- NOTE | 2019-02-08 08:10 | NUR ---
PROPOFOL DOWN TO 5 MCG/KG/MIN.
--- NOTE | 2019-02-08 08:11 | NUR ---
2ND UNIT OF PLATELETS TO BE GIVEN.
--- NOTE | 2019-02-08 08:45 | NUR ---
PATIENT DID SBT WITH RT FOR >[address] STAHL ON PHONE PRIOR TO EXTUBATING, AND PATIENT EXTUBATED AT 0848. PT TOLERATED WELL. PT REPEATING, "HELP ME, HELP ME." PATIENT ORIENTED TO SELF ONLY AT THIS TIME. PT ALSO SAYING, "HELP ME, I NEED TO GET UP, MY BACK HURTS." PATIENT HELPED TO REPOSITON IN BED. PT REORIENTED BEST POSSIBLE. FAMILY REMAINS IN ROOM. PT STARTING TO CALM DOWN NOW. HEART RATE NOW 102. LAST BP 150/69, SP02 95% ON 2 L.
--- NOTE | 2019-02-08 08:48 | NUR ---
EXTUBATED PT TO 2L NC. PT SATS 95% WITH 106 HR. PT DOING WELL
--- NOTE | 2019-02-08 09:46 | NUR ---
PATIENT RESTING IN BED AT THIS TIME. PT'S BETH REMAINS AT BEDSIDE IN CHAIR. HR 104, SP02 96% ON 2 L, AND LAST BP 160/44. PT RESTING WITH EYES CLOSED. DR. STAHL IN TO SEE PATIENT.
--- NOTE | 2019-02-08 09:53 | NUR ---
PLATELETS FINISHED AT THIS TIME. PT RESTING. FAMILY IN ROOM. IVF TO CONTINUE AT 75 ML/HR.
--- NOTE | 2019-02-08 09:58 | NUR ---
DR. PIMENTEL IN TO SEE PATIENT AT THIS TIME.
--- NOTE | 2019-02-08 11:03 | NUR ---
PATIENT WANTING TO GET OUT OF BED. PT SAYING, "PLEASE HELP ME UP. LET ME UP. LET ME UP." PATIENT SLOW TO ANSWER QUESTIONS. PT REMAINS ORIENTED TO SELF ONLY. PT NOT ABLE TO SAY WHERE SHE IS, BUT WHEN REMINDED SHE IS IN HOSPITAL, SHE SEEMS FAMILIAR WITH THE CONCEPT. PT THEN STATES, "HE DIDN'T FIX IT. HE DIDN'T FIX ME." PATIENT REORIENTED TO HER SURGICAL HISTORY OVER THE LAST COUPLE DAYS. PT THEN REPEATING THE WORD "" SEVERAL MINUTES AFTER ASKING HER WHAT THE MONTH IS. PT HELPED UP TO CHAIR. PT SLOW TO MOVE BUT ABLE TO ULTIMATELY STAND ON HER OWN. CLEAR LIQUID TRAY ORDERED FOR PATIENT. CONTINUE TO MONITOR.
--- NOTE | 2019-02-08 11:22 | NUR ---
PATIENT TAKING HER ORAL MEDS WITHOUT DIFFICULTY. PT NOW SITTING IN CHAIR AND WAITING FOR A CLEAR LIQUID TRAY. MEDICATED FOR PAIN ( SEE EMAR). GRANDDAUGHTER IN ROOM WELL. CONTINUE TO MONITOR.
--- NOTE | 2019-02-08 11:49 | NUR ---
PATIENT UP TO BSC TO ATTEMPT TO HAVE A BM, BUT ONLY ABLE TO PASS GAS. PT THOUGHT SHE DID HAVE A BM. PATIENT BACK IN CHAIR AND WAITING CLEAR LIQUID TRAY. GOWN CHANGED AGAIN AND INO DRAINS ATTACHED TO INSIDE OF GOWN. PT STILL CONFUSED.
--- NOTE | 2019-02-08 12:10 | NUR ---
PATIENT WANTING TO GET BACK INTO BED. PT HELPED WITH A 1 PERSON ASSIST AND FALLS ASLEEP ALMOST IMMEDIATLEY AFTER GETTING INTO BED. PT'S CLEAR LIQUID TRAY ARRIVES WITHIN MINUTES OF PATIENT GETTING BACK TO BED. OYXGEN 95% ON 1 L, OXYGEN TURNED OFF TO SEE IF PATIENT TOLERATES ROOM AIR. CONTINUE TO MONITOR.
--- NOTE | 2019-02-08 12:46 | NUR ---
URINE SAMPLE SENT AT THIS TIME FROM MARIAH SWANSON. PT RESTING IN BED. PT'S DAUGHTER HERE NOW AND HELPING TO GIVE PATIENT BITES OF JELLO. CONTINUE TO MONITOR.
--- NOTE | 2019-02-08 12:57 | NUR ---
PATIENT GIVEN PAIN MEDICATION AT THIS TIME FOR 10/10 ABDOMINAL PAIN. PT BACK IN CHAIR RESTING. PT ASKING, "WHERE AM I?" AND PATIENT REORIENTED BEST POSSIBLE. CONTINUE TO MONITOR.
--- NOTE | 2019-02-08 13:21 | NUR ---
PT ASSISTED BACK TO BED WITH TWO PERSON ASSIST. PT СЕРГЕЙ ACTIVITY WELL, ABLE TO MOVE WELL. PT HAS CALL LIGHT WITHIN REACH.
--- NOTE | 2019-02-08 13:36 | NUR ---
PATIENT RESTING IN BED AT THIS TIME. HR IN THE 90s. SP02 97% ON 1 L NC. CONTINUE TO MONITOR.
--- NOTE | 2019-02-08 14:46 | NUR ---
PATIENT UP TO BSC TO ATTTEMPT TO HAVE A BM BUT UNABLE TO. BACK TO BED AND LAYING ON LEFT SIDE. IV TYLENOL GIVEN FOR PAIN. CONTINUE TO MONITOR.
--- NOTE | 2019-02-08 17:10 | NUR ---
PT ASSISTED UP TO THE CHAIR FROM BED TWO PERSON LIGHT ASSIST, PT СЕРГЕЙ ACTIVITY WELL. IV SITES ARE INTACT, NO REDNESS OR SWELLING NOTED, FLUIDS AND FLUSHES INFUSE EASILY, PT DENIES PAIN AT EITHER SITE. PT C/O INCREASED ABD PAIN, STATES "IT HURTS ALOT", PT GIVEN 2 MG IV MORPHINE.
--- NOTE | 2019-02-08 18:11 | NUR ---
PATIENT UP TO CHAIR AGAIN. PATIENT REMAINS CONFUSED, HOWEVER SHE DOES NOT THINK SHE IS. PAIENT STATES, "I WANT TO GO DOWNTOWN." REORIENTED PATIENT BEST POSSIBLE. CONTINUE TO MONITOR. PT SIPPING ON BROTH AND EATING JELLO.
--- NOTE | 2019-02-08 18:18 | NUR ---
DR. STAHL CALLED TO UPDATE ON PATIENT. DR. STAHL THEN IN UNIT AND SEES PATIENT AGAIN. PLAN TO D/C MORPHINE AND ORDER ORAL PAIN CONTROL, WELL SOMETHING PRN FOR SLEEP. PT STATES TO DR. STAHL THAT SHE WANTS TO GO HOME.
--- NOTE | 2019-02-08 19:30 | NUR ---
SHIFT REPORT RECEIVED. PATIENT IN RECLINER. ASSISTED PATIENT TO THE BED PER HER REQUEST. CALL LIGHT IN HAND. BED ALARM ACTIVE.
--- NOTE | 2019-02-08 21:30 | NUR ---
PATIENT HAD APPEARED TO BE SLEEPING SOUNDLY. ALLOWED FOR REST. WHEN PATIENT WOKE SHE ATTEMPTED TO EXIT THE BED WITHOUT ASSISTANCE AND BECAME TANGLED IN CORDS FROM THE CONCERT MANAGER. ASSISTED PATIENT TO THE RECLINER, PER HER REQUEST. PATIENT UNABLE TO ANSWER ORIENTATION QUESTIONS. RESPONDS TO NAME AND APPEARS TO RECOGNIZE SURROUNDINGS. HOWEVER PATIENT STATES "YOU TOLD ME YOU WOULD TAKE ME HOME, TAKE ME HOME" REPEATEDLY. WHEN REMINDED THAT THE PATIENT HAD SURGERY YESTERDAY, THE PATIENT DENIES THIS. ATTEMPTS TO REDIRECT THE PATIENT WERE UNSUCCESSFUL. ASSISTED PATIENT BACK INTO BED PER HER REQUEST AND PROVIDED PRN PAIN MEDICATION DUE TO FLACC SCORE OF 6. PATIENT RESTING NOW WITH EYES CLOSED. BED ALARM ACTIVE, CLOSE MONITORING. VS STABLE. URINE OUTPUT QS. INO DRAINS EMPTIED, TOTAL OF 110 ML OF SEROSANGUINEOUS DRAINAGE.
--- NOTE | 2019-02-08 22:30 | NUR ---
PATIENT ROLLING FROM SIDE TO SIDE. MAONING AND STATING "NO". PATIENT APPEARS PAINFUL. ASSISTED PATIENT TO ROLL TO LEFT SIDE. 2 ICE PACKS APPLIED TO ABD. 2 TAB NORCO PROVIDED. PATIENT RESTLESS AND AGITATED. RN AT BEDSIDE FOR 1:1 CONTINUED REASSURANCE. PATIENT DISORIENTED. ABLE TO FOLLOW SIMPLE INSTRUCTIONS.
--- NOTE | 2019-02-08 23:59 | NUR ---
PATIENT APPEARS TO BE SLEEPING SOUNDLY. BREATHING EVEN AND NONLABORED. HR IN THE 70'S. ALLOWED PATIENT TO REST WITH MINIMAL DISRUPTIONS.
--- NOTE | 2019-02-09 03:39 | NUR ---
PATIENT WOKE AND ATTEMPTED TO EXIT BED WITHOUT ASSISTANCE. PATIENT REDIRECTABLE BUT UNABLE TO VERBALIZE HER NEEDS. DRESSING OVER INO SITE SATURATED. NEW GAUZE PADS AND ABD APPLIED TO AREA. INO DRAINS EMPTIED X2. ASSISTED PATIENT UP TO RECLINER. PATIENT ATE SOME JELLO AND DENIES PAIN. PATIENT ABLE TO VERBALIZE HER NAME AND DATE OF . STATES SHE IS "IN THE HOSPITAL" AND "HAD SURGERY" BUT UNABLE TO PROVIDE DETAILS. MOST QUESTIONS ANSWERED WITH "YEP" OR "NOPE" EVEN WHEN INAPPROPRIATE. PATIENT RETURNED TO BED. POSITIONED ON HER SIDE. ICE PACKS APPLIED TO ABD. ENCOURAGED PATIENT TO REST.
--- NOTE | 2019-02-09 04:21 | NUR ---
PATIENT HAS BEEN INCREASING RESTLESS. REPORTS PAIN, UNABLE TO DESCRIBE. DIFFICULT TO CONSOLE. FLACC SCORE 8/10. PRN PAIN MEDS PROVIDED. PATIENT REPOSITIONED IN BED. CONTINUES TO BE RESTLESS AND MILDLY CONFUSED. NURSE IN ROOM FOR CLOSE MONITORING.
--- NOTE | 2019-02-09 05:09 | NUR ---
PT STATES REPEATEDLY "I NEED TO PEE", ASSISTED UP OUT OF BED AND SHE SQUATED DOWN AND BEGAN URINATING, THEN HELPED HER ONTO THE BSC WHERE SHE SAT FOR A WHILE AND DID NOTHING THEN ASSISTED BACK TO BED.
--- NOTE | 2019-02-09 06:24 | NUR ---
REPORTED PATIENT'S LAB VALUES TO DR. STAHL. 2 UNITS OF PRBC ORDERS TO INFUSE NOW. PATIENT'S VS STABLE. BLOOD ADMINISTRATION PER POLICY. NO SIGNS OF ADVERSE REACTION AT THIS TIME. [place] RN SPOKE TO FAMILY TO PROVIDE UPDATE.
--- NOTE | 2019-02-09 07:01 | NUR ---
FIRST UNIT OF PRBC INFUSING. BLOOD DRAWN FOR NEW BLOOD BAND. NEW IV SITE PLACED BY MAHAMED NOVA. PATIENT RESTING IN BED, APPEARS COMFORTABLE. ASKING QUESTIONS FREQUENTLY. NO SIGNS OF REACTION AT THIS TIME.
--- NOTE | 2019-02-09 07:57 | NUR ---
PT RESTLESS IN BED. RN IN TO CHECK, PT UP TO THE BR WITH SBA TO VOID 15O ML YELLOW URINE. PT BACK TO BED. ASSESSMENT COMPLETE. CRACKLES NOTED IN THE LEFT LUNG BASE. PT DISORIENTED TO TIME AND EVENT, ORIENTED TO SELF. WHEN ASKED WHAT MONTH IT WAS SHE REPEATED SEVERAL TIMES "40". PT ABLE TO REMEMBER WHERE AND WHOM SHE LIVES WITH. MIDLINE DRESSING CDI, INO X 2 DRAINIGN SEROSANGUINEOUS FLUID. WARM BLANKETS PROVIDED, BED ALARM ON FOR SAFETY.
--- NOTE | 2019-02-09 09:12 | NUR ---
PT GIVEN PRN IV TYLENOL FOR C/O 10/10 ABD AND FOOT PAIN. PT SITTING IN RECLINER AT THIS TIME EATING SMALL AMOUNT OF CLEAR LIQUID TRAY. RN IN ROOM FOR SAFETY.
--- NOTE | 2019-02-09 09:15 | NUR ---
STAFF IN WORKING WITH PATIENT. WILL RETURN LATER.
--- NOTE | 2019-02-09 09:17 | NUR ---
SECOND UNIT PRBC'S STARTED. PT APPEARS TO BE MORE ORIENTED, ASKING QUESTIONS ABOUT HER HOSPITAL STAY. PT IN BED AT THIS TIME, CONTINUES TO C/O PAIN, TINGLING AND NUMBNESS IN BOTH FEET. STATES THIS IS NORMAL FOR HER BUT SEEMS WORSE AT THIS TIME. PT ALSO C/O FEELING HOT, ORAL TEMP 98.6, LUNGS CLEAR, NO S/SX OF BLOOD REACTION. DAUGHTER AT BEDSIDE.
--- NOTE | 2019-02-09 09:30 | NUR ---
PT REQUESTING ZINC, CALCIUM, AND MAGNESIUM TO HELP WITH THE PAIN AND RESTLESSNESS IN LOWER EXTREMITIES. HOSPITALIST IN TO SEE PT, NEW ORDERS RECEIVED.
--- NOTE | 2019-02-09 10:53 | NUR ---
MEDICATED WITH PRN NORCO FOR 10/10 ABD AND FOOT PAIN. PT UP TO BSC WITH SBA TO VOID 75 ML YELLOW URINE. СЕРГЕЙ WELL. PT BACK TO BED AT THIS TIME. LYING ON RIGHT SIDE WITH EYES CLOSED. BED ALARM ON FOR SAFETY.
--- NOTE | 2019-02-09 12:03 | NUR ---
PT RESTING IN BED WITH EYES CLOSED. AWAKENS EASILY TO VERBAL STIMULI. O2 1L NC IN PLACE, SATS 97%. RR EVEN AND UNLABORED. HR IN THE 70'S. LOWER EXTREMITIES APPEAR TO BE LESS RESTLESS. SECOND UNIT OF PRBC'S COMPLETE. BED ALARM ON.
--- NOTE | 2019-02-09 12:47 | NUR ---
PT UP TO BSC WITH SBA TO VOID 50 ML, BACK TO BED. СЕРГЕЙ WELL. PT SEEMS MORE CONFUSED AT THIS TIME THAN BEFORE, UNABLE TO ANSWER ORIENTATION QUESTIONS. C/O NAUSEA AFTER CL LIQ TRAY. DAUGHTER AND FRIEND IN THE ROOM VISITING.
--- NOTE | 2019-02-09 13:08 | NUR ---
PT MEDICATED WITH PRN ZOFRAN FOR C/O NAUSEA. PT NOW RESTING IN BED WITH EYES CLOSED. FAMILY AT [facility]. BED ALARM ON FOR PT SAFETY.
--- NOTE | 2019-02-09 13:26 | NUR ---
PT UP TO BSC TO VOID AND HAVE MEDIUM LOOSE BM. СЕРГЕЙ WELL. PT BACK TO BED RESTING WITH EYES CLOSED. O2 1L NC IN PLACE, O2 SATS 98%, HR 60-70'S. PT STATES HAVING A BM HELPED WITH HER NAUSEA. STILL C/O 9/10 NAUSEA WHILE AWAKE. ICE PACK PROVIDED.
--- NOTE | 2019-02-09 13:38 | NUR ---
PT UP TO BSC TO HAVE MEDIUM LIQUID BOWEL MOVEMENT WITH SBA. RN ASSISTED WITH LETITIA CARE. PT C/O SOME DIZZINESS AFTER TRANSFERRING BACK TO BED. LAB IN TO DRAW BLOOD.
--- NOTE | 2019-02-09 14:42 | NUR ---
PATIENT UP TO BSC TO HAVE A MIXED BM AND VOID. PT BACK TO BED AND STATES, "I NEED TO SLEEP, I FEEL BAD, LET THEM TALK, BUT I NEED TO SLEEP." PATIENT REFERRING TO HER BUSINESS EDUCATION INSTRUCTOR, HER DAUGHTER, AND HER SON IN LAW. PT RESTING IN BED ON LEFT SIDE RESTING WITH EYES CLOSED. SP02 96% ON 1 L NC, HR 69, SINUS RHYTHM.
--- NOTE | 2019-02-09 16:00 | NUR ---
PT UP TO BSC TO VOID SMALL AMOUNT WITH SBA. HAIR SHAMPOOED AND SPONGE BATH GIVEN WITH RN ASSIST. LINENS CHANGED. RN ASSIST WITH LETITIA CARE. PT BACK TO BED. DRESSING ON RIGHT SIDE COVERING INO DRAINS CHANGED. PT NOTED TO BE VOIDING SMALL AMOUNTS FREQUENTLY, BLADDER SCAN SHOWED 16 ML RESIDUAL. MD AWARE.
--- NOTE | 2019-02-09 16:30 | NUR ---
PT UP TO CHAIR TO EAT CHICKEN NOODLE SOUP AND ATTEMPT TO RELIEVE RESTLESSNESS IN LOWER EXTREMITIES. PT ATE ABOUT 35% OF SOUP, NO C/O NAUSEA AT THIS TIME. VS AND ASSESSMENT COMPLETE.
[2019-02-09] MEDS ORDERED: HM CALCIUM-MAG1 EACH PO (16:43)
--- NOTE | 2019-02-09 16:43 | NUR ---
MED REC COMPLETE
--- NOTE | 2019-02-09 17:48 | NUR ---
PT UP TO BSC WITH SBA TO VOID 150 ML. СЕРГЕЙ WELL. NO C/O NAUSEA AT THIS TIME. MINIMAL C/O PAIN OR RESTLESSNESS IN LOWER EXTREMITIES. CBG 139, NO INSULIN COVERAGE NEEDED. O2 SATS 94% ON RA. PT ORIENTED TO SELF, PLACE, AND TIME.
--- NOTE | 2019-02-09 18:23 | NUR ---
PT UP TO BSC WITH SBA TO VOID 60 ML YELLOW URINE AND HAVE SM LIQ BM. PT BACK TO BED WATCHING TV. HR IN THE 80'S, STILL C/O RESTLESSNESS AND PAIN IN LE. NO C/O NAUSEA, TAKING SMALL SIPS OF WATER. MEPILEX DRESSING INTACT, DRESSING OVER INO DRAINS CLEAN, DRY, AND INTACT. PT INSTRUCTED TO USE THE NURSE CALL BUTTON FOR ASSISTANCE IN GETTING OUT OF BED. BED ALARM ON FOR SAFETY.
--- NOTE | 2019-02-09 19:21 | NUR ---
SHIFT REPORT RECEIVED. PATIENT APPEARS TO BE SLEEPING. HR 82, BREATHING NONLABORED.
--- NOTE | 2019-02-09 20:49 | NUR ---
PATIENT USED CALL LIGHT TO REQUEST TOILETING ASSISTANCE. PATIENT UP TO BSC WITH MINIMAL ASSISTANCE. PATIENT OREINTED TO SELF, THE YEAR, LOCATION, AND SOME DETAILS OF HER HOSPITALIZATION THAT WERE TOLD TO HER TODAY. PATIENT MOVES SLOWLY BUT STEADY. PATIENT RETURNS TO BED, REPORTS PAIN 10/10 IN HER FEET AND ABD. ICE PACKS APPLIED TO ABD, SCHEDULED AND PRN MEDS PROVIDED. PATIENT REQUESTING FOOD, SOUP PROVIDED. PATIENT TOLERATING ROOM AIR.
--- NOTE | 2019-02-09 22:21 | NUR ---
PATIENT UP AND DOWN TO THE BSC FREQUENTLY FOR URINE AMOUNTS OF 50-100 MLS. PATIENT REPORTS PAIN IN ABD AND FEET. REFUSES TO USE ICE PACKS AT THIS TIME. ENCOURAGED PATIENT TO REST TO REDUCE PAIN. EVENING SLEEP AID PROVIDED PER EMAR. PATIENT STATES "THE DOSE IS 1 TO 4 OF THESE YOU KNOW". EDUCATED PATIENT ON SAFE DOSING. PATIENT UNINTERESTED. IV ABX STARTED. IV SITE ON RIGHT FOREARM FLUSHES WELL BUT PATIENT REPORTS PAIN. RIGHT AC SITE USED.
--- NOTE | 2019-02-10 00:27 | NUR ---
PATIENT USED CALL LIGHT TO CALL FOR ASSISTANCE. PATIENT UP TO THE BSC TO VOID. NO REPORTS OF PAIN AND MOVES EASILY. PATIENT TURNED TO BED. PROVIDED WITH WARM BLANKET. VS STABLE.
--- NOTE | 2019-02-10 02:25 | NUR ---
UPT TO VOID. GIVEN WARM BLANKET.
--- NOTE | 2019-02-10 03:53 | NUR ---
C/O BEING NAUSEATED, SOME RETCHING, NO EMESIS. AT FIRST ASKED FOR SOMETHING TO EAT BEFORE SAYING SHE WAS NAUSEATED. GIVEN 4MG ZOFRAN IV. UP TO BSC TO VOID. INO DRAINS EMPITED OF SEROSAN FLIUD.
--- NOTE | 2019-02-10 04:58 | NUR ---
PATIENT HAS REPORTED ABD DISCOMFORT AND NAUSEA WITH DRY HEAVES SINCE ABOUT 0330 THIS MORNING. PATIENT HAS NOT HAD ANY EMESIS. PATIENT CONTINUES TO STATE "I'M SICK. I NEED SOMETHING TO EAT." DISCOURAGED PATIENT TO EAT DURING THIS TIME OF NAUSEA. PATIENT STATES "I KNOW I'D FEEL BETTER IF I THREW UP". PROVIDED PATIENT WITH PRN ZOFRAN. PATIENT UP TO [facility] TO VOID. RN EXIT THE ROOM TO GATHER DRESSING CHANGE SUPPLIES. WHEN RN ENTERED ROOM PATIENT HAD HER FINGERS IN HER MOUTH APPARENTLY TRYING TO INDUCE VOMITING. DISCOURAGED THE PATIENT FROM THIS BEHAVIOR. PATIENT STATES "IF YOU WOULD LET ME THROW UP I WOULD FEEL BETTER". ASSISTED PATIENT BACK INTO BED. NEW DRESSING APPLIED TO INO SITES. PRN TYLENOL PROVIDED FOR ABD PAIN. PATIENT ALSO REPORTS A HEADACHE.
--- NOTE | 2019-02-10 05:40 | NUR ---
PATIENT UP TO BSC. MOVES EASILY WITHOUT ASSISTANCE. STATES "I'M SICK. I DON'T THINK I'M GOING TO MAKE IT." DISCUSSED PATIENT'S IMPROVEMENTS WITH HER AND ENCOURAGED HER TO THINK POSITIVE. PATIENT BACK TO BED. WARM BLANKET PROVIDED.
--- NOTE | 2019-02-10 07:30 | NUR ---
REPORT RECIEVED. PATIENT IS AWAKE, VOMITED ON FLOOR, IS VERY ANXIOUS. STATES I DO NOT FEEL GOOD, I AM SO SICK. UP TO BR TO VOID. IS STABLE FEET. C/O OF DIZZINESS WHEN ASKED.
--- NOTE | 2019-02-10 08:00 | NUR ---
SITTING IN CHAIR, ASSESSMENT DONE. ZOFRAN GIVEN FOR NAUSEA.
--- NOTE | 2019-02-10 08:15 | NUR ---
UP TO BATHROOM AGAIN TO VOID. DENIES PAINFUL URINATION. THEN TO BED. CONTINUE TO C/O PAIN AND NAUSEA. IS AWARE OF PERSON, PLACE, TIME. ACCUCHECK 206, 3 UNITS OF INSULIN SQ GIVEN. BREAKFAST ON HOLD AT THIS TIME DUE TO NAUSEA.
--- NOTE | 2019-02-10 09:20 | NUR ---
DR. PIMENTEL HERE TO SEE PATIENT.
--- NOTE | 2019-02-10 10:00 | NUR ---
SPOKE WITH PATIENT IN ROOM. PATIENT FEELING NAUSEATED AND DOESN'T FEEL LIKE CONVERSATION. WILL RETURN ANOTHER TIME.
--- NOTE | 2019-02-10 10:20 | NUR ---
MORE RESTFUL AT THIS TIME.
--- NOTE | 2019-02-10 10:25 | NUR ---
DR. STAHL HERE TO SEE PATIENT. MEPILEX DRESSING TO MID ABD INCISION DC'D UPPER ASPECT OF INCISION SLIGHT DEHIS. DR. STAHL PLACED FEW SITCHES AND 4X4 DRESSING INO'S DC'D. DRESSING APPLIED. PATIENT STATES SHE FEELS BETTER AT THIS TIME. IS LESS RESTLESS TODAY.
--- NOTE | 2019-02-10 11:25 | OR ---
[facility] [address], [place] [address] Signed DATE OF OPERATION: 02/07/2019 SURGEON: Saturnino Stahl MD PREOPERATIVE DIAGNOSES: 1. Postoperative intraabdominal bleeding, status post laparoscopic cholecystectomy with intraoperative cholangiogram (uncomplicated), February 06, 2019. 2. Medical problems including mild renal insufficiency, creatinine 1.69, and hypertension. POSTOPERATIVE DIAGNOSIS: Hemoperitoneum with considerable clot in the mid abdomen in the region of omentum and subhepatic space, actual bleeding source uncertain. PROCEDURES: 1. Laparoscopy with peritoneal lavage and evacuation of clot, limited lysis of omental adhesions at the umbilicus. 2. Placement of abdominal drains x2. ANESTHESIA NURSE: Magalie Kern RN. ANESTHESIA: General endotracheal; Lyn Corrigan CRNA. INDICATION: This 79-year-old white woman is a patient DrGail Blackmon of [facility]. She was admitted on February 05, 2019 to the emergency room with symptoms highly typical of cholecystitis. She had been evaluated by Dr. Blackmon including a gallbladder ultrasound as well as a CCK HIDA test, which showed an ejection fraction of only 9% with reproduction of her symptoms. A plan for elective cholecystectomy had been anticipated. Her presentation in the emergency room showed her to have persistent tenderness in right subcostal area and significant pain. She was considered likely to have acute cholecystitis (acalculous) and therefore yesterday after a day of fluid resuscitation, underwent laparoscopic cholecystectomy with intraoperative cholangiogram. 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 The gallbladder was chronically inflamed. Electronically Signed By: SATURNINO STAHL MD 02/10/19 1125 PATIENT NAME: CARLO MATHIAS OPERATIVE REPORT DATE OF : 40 REPORT #: [id number] PHYSICIAN: SATURNINO STAHL MD PCP: TIFFANY BLACKMON MD REPORT IS CONFIDENTIAL AND NOT TO BE RELEASED WITHOUT AUTHORIZATION [facility] [address], [place] [address] Signed Cholangiogram was normal. There was certainly no untoward bleeding at operation. Indeed, it was rather straightforward and simple. In the radiator repairer hours, I was called that she was having drainage from both the umbilical and epigastric port sites with thin bloody fluid. She was not tachycardic, though she was on a beta buck and not particularly hypotensive. She was somewhat disoriented and so forth. My initial thought was she may have developed some postoperative ascites with minimal bleeding. Lab studies were obtained showing a normal pro-time, normal liver enzymes, but elevated white count greater than 34,000, and decreased hematocrit to 21.2. Her preoperative hematocrit was 32. Transfusion therapy was initiated and an urgent reexploration of the abdomen was deemed advisable. My concern was she may have bleeding from the liver biopsy site or even the gallbladder fossa or trocar site, however, unlikely that might be. The risks of bleeding, infection, and other unforeseen complications were reviewed with the patient as well as her daughter and daughter's . They wished to proceed. FINDINGS: There is ecchymosis at the umbilicus and the epigastric port site. Induction anesthesia was without complication. Transfusion therapy was underway at time of operation. A Hays catheter was placed. Notably, her creatinine preoperatively was 1.69 and previously 1.34. The umbilical incision was opened and there was a small amount of old blood in the subcutaneous tissue. The fascial edges were open and there were entangle of omental adhesions at that site that was noted previously. With all due care, a balloon Vignesh cannula was placed and pneumoperitoneum achieved to a level of 10 mmHg of carbon dioxide gas. The laparoscope was introduced and immediately noted was a large gelatinous clot in the mid abdomen in the omentum overlying the abdominal viscera. There was no sign of bleeding from any of the trocar site from previously. The epigastric incision was opened and a 10 mm trocar bluntly placed through it. Examination allow for suction of free-flowing blood along the right upper lobe of the liver, which was dark in color overall. The liver edge was elevated and the gallbladder fossa had allowed for evacuation of some old clot, but there was no sign of active bleeding or even oozing. Notably, the dissection of the original operation was rather straightforward. The liver biopsy site in the medial segment of left lobe of the liver did not appear to be actively bleeding either. Concern was made for possible omental bleeding, though that had not been a problem at the original operation. The gelatinous clot that overlay the omentum was manipulated and with two separate endobags, the clot was largely evacuated and withdrawn through the epigastric port. Irrigation with sterile saline was undertaken in subhepatic space and Electronically Signed By: SATURNINO STAHL MD 02/10/19 1125 PATIENT NAME: CARLO MATHIAS OPERATIVE REPORT DATE OF : 40 REPORT #: [id number] PHYSICIAN: SATURNINO STAHL MD PCP: TIFFANY BLACKMON MD REPORT IS CONFIDENTIAL AND NOT TO BE RELEASED WITHOUT AUTHORIZATION [address] [place], [place] [address] Signed laterally allowing for good visualization, again showing no sign of active bleeding. Reinspection of the omental area showed retention of some clot in the area and this was suctioned free with the laparoscopic irrigation suction device more fully. There appeared to be no discrete bleeding vessel within the omentum, though it was generous and fatty. Irrigation was undertaken more fully. On examination, the right pericolic gutter undertaken. The dark but free-flowing blood in this area was suctioned free, again showing no sign of specific source of bleeding along that area. There were omental adhesions in the region of the umbilicus previously on the possibility of some trauma to omentum in that area causing bleeding was considered. The camera was replaced to the epigastric port site and using electrocautery dissection, those omental adhesions around the umbilical port site were taken down, and although there was a small amount of blood, there were no copious clot and certainly no active bleeding. Mindful of other unusual areas of bleeding possibly unrelated to operation at all were considered. Direction of inspection to the left upper quadrant was undertaken. There was some free-flowing blood, no clot in the region of the left lateral segment of liver nor lateral to the spleen. An additional trocar was placed in the right side allowing for two hand manipulation of the left upper abdomen. The dark free-flowing blood in the area was suctioned free. Again, there was no clot. The spleen could not be readily identified as there were omental adhesions to the area, but it did not appear to be a large hematoma in the region of the spleen. The chance of a spontaneous splenic rupture though possible was considered unlikely. It is notable [place] [address], but again her preoperative white count was normal as was her platelet count. Reinspection throughout the abdomen was undertaken. There was no sign of active bleeding and clot had been removed and any free-flowing blood essentially irrigated free. Additional irrigation was undertaken. The liver was elevated and the gallbladder fossa was gently electrocoagulated, though again no sign of discrete bleeder. Similarly, the liver biopsy site was cauterized, but again no bleeding really from the area. Fredy hemostatic powdered agent was insufflated into the subhepatic space and at the biopsy site. Two 7 mm flat Fredy drains were placed, one directly over the right lobe of the liver in the right pericolic gutter pathway and another in the epigastric subhepatic space as the tip directed laterally to the left upper quadrant. The trocars were removed and pneumoperitoneum relieved for 5 minutes so as to assess for any recurrent oozing that may have been staunched by pneumoperitoneum. Reinsufflation showed no sign of reaccumulation of blood or active bleeding. Plans were then made for closure. The trocars removed and pneumoperitoneum relieved. The infraumbilical fascial incision was reapproximated with running 0 PDS suture. The skin sites were closed with Electronically Signed By: SATURNINO STAHL MD 02/10/19 1125 PATIENT NAME: CARLO MATHIAS OPERATIVE REPORT DATE OF : 40 REPORT #: [id number] PHYSICIAN: SATURNINO STAHL MD PCP: TIFFANY BLACKMON MD REPORT IS CONFIDENTIAL AND NOT TO BE RELEASED WITHOUT AUTHORIZATION [address] [address] Signed interrupted 3-0 Vicryl and Steri-Strips were applied. Egress from the drains was a thin brighter red fluid, not meggan blood by any means. She was taken to recovery room in good condition having suffered no known complications. Anesthesia estimate of clot evacuated was 500 mL. She received 3 units of packed red cells intraoperatively and 3 L of crystalloid solution. MD BRIDGET Davis/PARISL /[id number] cc: MD Tiffany Zayas MD Copies: ~ Electronically Signed By: SATURNINO STAHL MD 02/10/19 1125 PATIENT NAME: CARLO MATHIAS OPERATIVE REPORT DATE OF : 40 REPORT #: [id number] PHYSICIAN: SATURNINO STAHL MD PCP: TIFFANY BLACKMON MD REPORT IS CONFIDENTIAL AND NOT TO BE RELEASED WITHOUT AUTHORIZATION
--- NOTE | 2019-02-10 11:25 | OR ---
[facility] [address] [place], [place] [address] Signed DATE OF OPERATION: 02/07/2019 SURGEON: Saturnino Stahl MD PREOPERATIVE DIAGNOSES: Recurrent postoperative intraabdominal bleeding, probable omental origin. POSTOPERATIVE DIAGNOSES: 1. Recurrent postoperative intraabdominal bleeding, probable omental origin. 2. Omentum with several sites of oozing and possible source of bleeding. PROCEDURES PERFORMED: 1. Laparotomy with peritoneal lavage and evacuation of clots. 2. Partial omentectomy to control omental bleeding. ANESTHESIA: General endotracheal; Lyn Corrigan CRNA. INDICATION: This 79-year-old white woman underwent laparoscopic cholecystectomy with cholangiogram on 02/06/2019, for acute and chronic cholecystitis (acalculous). She was noted to have an abnormal liver at that time and liver biopsy was obtained as well. The operation was rather straightforward. Early this morning, she was noted to have bloody drainage from the epigastric and umbilical port sites. Found to have hematocrit of 21.2 with a preoperative hematocrit of 32. Platelet count was normal and coags were normal. She underwent operation, which included laparoscopy showing copious amount of clot in the upper abdomen below the abdominal wall. The trocar sites did not appear to be the source of the bleeding in the subhepatic space (gallbladder fossa) as well as the liver biopsy site appeared to be hemostatic. Inspection inferiorly noted omental adhesions in the region of the infraumbilical incision. Notably, she had a supraumbilical incision for her laparoscopy. This area was examined, but there was no sign of active bleeding or much clot in that area. Drains were placed in the right paracolic lateral hepatic area as well as in the subhepatic space tending towards the splenic hilum. Notably, the spleen was not able to be visualized due to omental adhesions in that area. The patient had undergone transfusion of 5 units of blood in total. She was monitored in the intensive care unit and drains were clear generally, but then recurrent bleeding was noted. Additional transfusion was undertaken and fresh frozen plasma transfused and tranexamic acid also infused. She was hemodynamically stable and Electronically Signed By: SATURNINO STAHL MD 02/10/19 1125 PATIENT NAME: CARLO MATHIAS OPERATIVE REPORT DATE OF : 40 REPORT #: [id number] PHYSICIAN: SATURNINO STAHL MD PCP: TIFFANY BLACKMON MD REPORT IS CONFIDENTIAL AND NOT TO BE RELEASED WITHOUT AUTHORIZATION [facility] [address] [place], [place] [address] Signed because of that and mindful of recurrent bleeding of unknown etiology and concern for possible unexpected distal artery problem or even splenic issue, a CT scan with IV contrast was obtained, mindful of her somewhat elevated creatinine. The findings showed no sign of bleeding in the upper abdomen, but did show what appeared to be a "blush" reactive bleeding in the region of the omentum not far from the supraumbilical incision. I have recommended the patient and her family re-exploration through limited pelvic laparotomy including the umbilical area, possibly to include omentectomy for control of this persistent bleeding problem. The risks of bleeding, infection, need for additional procedures, and failure to cure the problem were all reviewed in detail. They understand. FINDINGS: The supraumbilical incision was extended inferiorly and laparotomy was maintained without extension to the upper abdomen. The upper abdomen was free of active bleeding. There was some clot noted but not much and the bleeding appeared to be from the omentum itself. The omentum had dense scarring at the region of the infraumbilical area related to prior hysterectomy. Mobility of the omentum was largely accomplished, however, there was dense adhesions to the distal portion of the omentum to the pelvis and this area was clearly not the source of bleeding. It is considered most likely bleeding was within the omental tissue itself. Partial omentectomy was required for complete control. Transverse colon was identified and although there was some surrounding ecchymosis of the transverse colon, certainly no injury to the colon proper nor the mesocolon. By conclusion, appeared to be no active bleeding. The drains that were placed originally were used once again. Blood loss through the operation was approximately 500 mL, all of it the clotted blood previously noted. DESCRIPTION OF PROCEDURE: The patient was brought to the operating room, given a general endotracheal anesthetic. Sequential compression device stockings were in place and the patient already had a Hays catheter in place with a urometer. The abdomen was prepared with a chlorhexidine solution after removal of Steri-Strips. The drains were allowed to remain in situ. The supraumbilical incision was extended around the umbilicus to the right and inferiorly. She did have a somewhat thick abdominal pannus and therefore incision was extended a bit more ultimately. The abdomen was entered and gelatinous clot was noted directly under the umbilical area. This was removed with ring forceps and scooping of the clot. There was no sign of pumping vessel initially that was seen particularly. The omentum was mobilized laterally and inferiorly. The upper aspect of the omentum was completely free of problem. There was some free-flowing blood in the right pericolic gutter extending of the right lobe of the liver. This was suctioned free as well. For control of this Electronically Signed By: SATURNINO STAHL MD 02/10/19 1125 PATIENT NAME: CARLO MATHIAS OPERATIVE REPORT DATE OF : 40 REPORT #: [id number] PHYSICIAN: SATURNINO STAHL MD PCP: TIFFANY BLACKMON MD REPORT IS CONFIDENTIAL AND NOT TO BE RELEASED WITHOUT AUTHORIZATION [facility] [address] [place], [place] [address] Signed omental bleeding, which was not particularly focal or obvious, it was deemed advisable to mobilize the omentum more fully. The omentum was densely adherent to the infraumbilical area from prior midline incision and this was accomplished with electrocautery and blunt dissection. Special care was taken to avoid injury to surrounding organs in particular the small bowel and so on. Mobility was able to be accomplished extensively inferiorly, but it was found to be densely adherent to the pelvic structures. She has undergone hysterectomy in the past. The area most likely the source of bleeding was somewhat to the right of the midline and one small vessel did have without specific dissection in the area, a pumping arcade which was notable and uncertain if this was the actual site of bleeding. Partial omentectomy was undertaken with serial application of hemostats and security of the well-vascularized omentum with 0 silk ties. Partial omentectomy was accomplished, mindful of the position of the mesocolon and the transverse colon itself. No injury occurred to either. This appeared to staunch any ongoing bleeding or oozing. Careful inspection of the right and left pericolic gutters was undertaken showing no sign of specific bleeding other than that created by dissection. The upper abdomen was freed of clot with ring clamps and inspection of subhepatic space, spleen itself which was now well visualized. All of this showed no sign of bleeding. There was some clot over the top of the liver on the right side. This was suctioned free. There was no sign of ongoing bleeding. Copious irrigation of the abdominal contents with warm saline was undertaken and a further inspection showed no sign of ongoing bleeding. The drains were rearranged to previous position, one over the right lateral aspect of the liver. The other in the subhepatic space extending towards the left upper quadrant. No specific drain was placed over the mid abdomen. Reinspection was undertaken showing good hemostasis throughout. The midline fascia was reapproximated with running bidirectional #1 PDS suture. Subcutaneous tissue irrigated with saline solution. Skin closed with running subcuticular 3-0 Vicryl. Steri-Strips were applied as was a Mepilex silver sponge dressing. It was elected to keep the patient intubated given the late hour of the evening, her advanced age, and underlying medical issues. Blood loss which would include clot was about 500 mL. Sponge, needle, and instrument counts reported as correct x3. Special care was taken . Saturnino Stahl MD JM/MODL /[id number] Electronically Signed By: SATURNINO STAHL MD 02/10/19 1125 PATIENT NAME: CARLO MATHIAS OPERATIVE REPORT DATE OF : 40 REPORT #: [id number] PHYSICIAN: SATURNINO STAHL MD PCP: TIFFANY BLACKMON MD REPORT IS CONFIDENTIAL AND NOT TO BE RELEASED WITHOUT AUTHORIZATION [address] [address] Signed cc: DO Wil Ayoub MD Copies: ANASTACIA BLACKMON WILLIAM S MD ~ Electronically Signed By: SATURNINO STAHL MD 02/10/19 1125 PATIENT NAME: STEWNIKOLAYCARLO DANIEL OPERATIVE REPORT DATE OF : 40 REPORT #: [id number] PHYSICIAN: SATURNINO STAHL MD PCP: TIFFANY BLACKMON MD REPORT IS CONFIDENTIAL AND NOT TO BE RELEASED WITHOUT AUTHORIZATION
--- NOTE | 2019-02-10 11:25 | HP ---
[facility] [address], [place] [address] Signed ADMISSION DATE: 02/05/2019 REASON FOR ADMISSION: Acute acalculous cholecystitis. HISTORY OF PRESENT ILLNESS: This 79-year-old white woman is now a patient of Dr. Blackmon in [place] at [facility]. In the past few weeks, she has been having episodes of right upper abdominal pain. Her evaluation has included a gallbladder ultrasound, which was performed on December 30, 2018, which showed no sign of stones and subsequently a CCK-HIDA test on January 21, 2019, which showed reproduction of her symptoms of right upper abdominal pain. There was an ejection fraction of only 9%. Plans were being made for referral for consideration of cholecystectomy. In the past few days, the patient has had a rather severe right upper abdominal and epigastric and subsequently right posterior subscapular pain. She presented to the emergency room where she was thoroughly evaluated by Dr. Neely with a strong suspicion of acute acalculous cholecystitis. She is admitted for further evaluation and care. PAST MEDICAL HISTORY: Includes diabetes type 2, hypertension, and arthritis. ALLERGIES: She has no known drug allergies. MEDICATIONS: Include tramadol, trazodone, duloxetine, Synthroid, omeprazole, amlodipine, metformin, Actos, lisinopril, metoprolol, escitalopram, and atorvastatin. The patient admits to hypothyroidism and hypertension as well as [id number] diabetes mellitus and also self describes "restless legs". SOCIAL HISTORY: She lives in [place]. She is accompanied by her daughter as well as an older gentleman who her daughter cares for. The patient previously lived in [place], [place]. She is . 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 REVIEW OF SYSTEMS: She denies any shortness of breath or chest pain. She has had no dysphagia or dysuria. Denies any hematemesis or blood per rectum. Electronically Signed By: SATURNINO STAHL MD 02/06/19 1548 Electronically Signed By: SATURNINO STAHL MD 02/10/19 1125 PATIENT NAME: CARLO MATHIAS HISTORY AND PHYSICAL DATE OF : 40 REPORT #: [id number] PHYSICIAN: SATURNINO STAHL MD PCP: TIFFANY BLACKMON MD REPORT IS CONFIDENTIAL AND NOT TO BE RELEASED WITHOUT AUTHORIZATION [facility] [address], [place] [address] Signed PHYSICAL EXAMINATION: GENERAL: Pleasant older woman who looks to be not systemically toxic. HEENT: Mucous membranes are mildly moist only. Trachea is midline. She has no carotid bruit. CHEST: Clear. HEART: Regular without murmur. ABDOMEN: Obese, but soft. There is definitely tenderness in the epigastric and right subcostal area, most consistent with acute cholecystitis. EXTREMITIES: Show no clubbing, cyanosis, or edema. LABORATORY STUDIES: Showed a white count of 9.2, hematocrit 32.7, platelets 150,000, lipase 46. Her Chem profile today shows a creatinine of 1.26, glucose of 101, and calcium of 10.7. Her lipase is 46. Urinalysis is negative. She has 5 white cells per high-power field, however. Ultrasound shows a gallbladder that has a visible wall, but not associated with any stones. The liver texture appears normal. ASSESSMENT: The patient almost certainly has acute acalculous cholecystitis. Her recent imaging studies would be suggestive of it and her progression to problems now is notable. I have recommended admission to the hospital, IV fluids, parental pain medication, IV antibiotics, anticipating cholecystectomy tomorrow, on Friday. The risks of bleeding, infection, bile duct injury, need for open procedure and other unforeseen complications was reviewed in detail with her and her daughter. They understand. We will allow clear liquids if she desires and is certainly n.p.o. after midnight. It is uncertain what time operative intervention might be undertaken tomorrow given call situation and so forth. MD BRIDGET Davis/PARISL /[id number] cc: Tiffany Blackmon MD Electronically Signed By: SATURNINO STAHL MD 02/06/19 1548 Electronically Signed By: SATURNINO STAHL MD 02/10/19 1125 PATIENT NAME: CARLO MATHIAS HISTORY AND PHYSICAL DATE OF : 40 REPORT #: [id number] PHYSICIAN: SATURNINO STAHL MD PCP: TIFFANY BLACKMON MD REPORT IS CONFIDENTIAL AND NOT TO BE RELEASED WITHOUT AUTHORIZATION [facility] [address] [place] [id number] Signed Wil Neely MD Copies: ~ Electronically Signed By: SATURNINO STAHL MD 02/06/19 1548 Electronically Signed By: SATURNINO STAHL MD 02/10/19 1125 PATIENT NAME: CARLO MATHIAS HISTORY AND PHYSICAL DATE OF : 40 REPORT #: [id number] PHYSICIAN: SATURNINO STAHL MD PCP: TIFFANY BLACKMON MD REPORT IS CONFIDENTIAL AND NOT TO BE RELEASED WITHOUT AUTHORIZATION
--- NOTE | 2019-02-10 12:00 | NUR ---
ASSESSMENT DONE, UP TO BR THEN TO SIT AT BEDSIDE FOR LUNCH.
--- NOTE | 2019-02-10 12:30 | NUR ---
TOOK LUNCH POOR. APPROX 15% FRIEND IS IN ROOM. PATIENT IS LAYING DOWN IN BED, IS CALM. HAVING BETTER DAY TODAY. FEET REMAIN COLD TO TOUCH, PATIENT STATES THIS IS THE WAY HER FEET ALWAYS ARE.
--- NOTE | 2019-02-10 14:20 | NUR ---
TO BR TO VOID, HAS BEEN TO BR MANY TIMES TODAY. AMBULATED IN HALLWAY FOR APPROX 4 MIN. TOLERATED FAIR. IV TYLENOL GIVEN FOR C/O OF ABD PAIN.
--- NOTE | 2019-02-10 14:55 | NUR ---
PT UP TO AMBULATE TO RESTROOM. PT VOIDED AND HAD SCANT BM. BACK TO BED, GOWN CHANGED.
--- NOTE | 2019-02-10 15:30 | NUR ---
HAS BEEN UP TO BR TWICE SINCE 1499, MISSED HAT BOTH TIMES.
--- NOTE | 2019-02-10 16:00 | NUR ---
ASSESSMENT DONE, IS MUCH MORE RESTFUL TODAY. OLD INO SITES DRAINING SEROUS FLUID, MID ABD DRESSING IS INTACT. 2 SMALL DRAIN BAGS APPLIED OVER OLD INO SITES.
--- NOTE | 2019-02-10 18:05 | NUR ---
ACCUCHECK-151. INSULIN GTT TO 1 UNIT HR. IVF CONTINUE TO INFUSE AT 200 ML/HR. JAVIERS NAUSEA.
--- NOTE | 2019-02-10 18:41 | NUR ---
DR. STAHL UPDATED ON PATIENT, ORDERS RECIEVED TO DC'D [facility].
--- NOTE | 2019-02-10 19:35 | NUR ---
REPORT TO NEXT SHIFT, PATIENT RESTFUL IN BED. HAS HAD MUCH BETTER TODAY.
--- NOTE | 2019-02-10 20:15 | NUR ---
RECEIVED REPORT AT 1900, FOUND PT IN BED RESTING. ALL LOBES ARE CLEAR, ABD SOUNDS ARE PRESENT, ABD IS TENDER TO TOUCH. MIDLINE ABD DRESSING IS D/I. LAP SITES X2 HAVE INFANT URINE BAGS ATACHED WITH SEROUSSANG. DRAINAGE PRESENT IN THE BAGS. PAIN IS TOLERABLE STATED BY PT AT THIS TIME. URINE OUTPUT SO FAR IS ADEQUATE. BP ELEVATED AT 152/62, OHER V/S ARE WDL. NO PERIPHERAL EDEMA NOTED. BOTH FEET HOWEVER ARE RED IN APPEARENCE WITH PEDIS PULSES +1. BUT PT STATED THAT IS HER NORM.
--- NOTE | 2019-02-10 22:35 | NUR ---
PT IS SLEEPING AT THIS TIME. NO NEW CONCERNS NOTED AT THIS TIME.
--- NOTE | 2019-02-10 23:15 | NUR ---
ASSISTED PT TO BEDSIDE COMMODE. PT IS STEADY ON HER FEET. PT IS BACK TO BED. PT HAD NO OTHER NEEDS OR COMPLAINTS AT THIS TIME.
--- NOTE | 2019-02-11 01:15 | NUR ---
ABD SOUNDS ARE PRESENT. PAIN IS 5/10 AND PT HAS A TEMP OF 99.5 F. OTHER V/S RE WDL. PT HAD DRAINAGE COMING FROM TWO LAP SITES WHICH WERE RE-DRESSED. IT WAS SEROUSSANG. FLUID. WILL CONTINUE TO MONITOR. NO OTHER CONCERNS NOTED AT THIS TIME.
--- NOTE | 2019-02-11 03:15 | NUR ---
PT AT THIS TIME IS SLEEPING.
--- NOTE | 2019-02-11 05:16 | NUR ---
ASSISTED PT TO BEDSIDE COMMODE. NO LEAKING LAP-SITES NOTED AT THIS TIME. DRESSNGS ARE C/D/I. ABD SOUNDS ARE PRESENT.
--- NOTE | 2019-02-11 06:22 | NUR ---
PT AT THIS TIME IS SLEEPING. URINE OUTPUT WAS ADEQUATE THIS SHIFT. LAP-SITE DRESSINGS HAD TO BE CHANGED X1 THIS SHIFT. ABD MIDLINE DRESSING IS D/I. PT OVERALL HAD A MUCH BETTER NIGHT THAN THE NIGHT BEFORE. PAIN IS WELL CONTROLLED WITH PRN IV TYLENOL, ABD SOUND ARE PERSENT. V/S ARE WDL.
--- NOTE | 2019-02-11 07:45 | NUR ---
PATIENT RESTING IN BED AT THIS TIME. PATIENT CALL LIGHT IN REACH. PER REPORT PATIENT SLEPT WELL THROUGHOUT THE NIGHT. WILL CONTINUE TO CLOSELY MONITOR.
--- NOTE | 2019-02-11 08:15 | NUR ---
PATIENT AWAKE, UP WITH STAFF. PATIENT STATES SHE LIVES WITH HER DAUGHTER. STATES SHE PLANS ON "GOING HOME WITH HER" AT DISCHARGE. PATIENT STATES SHE HAS A WALKER AT HOME. SHE STATES HER DAUGHTER WILL BE HERE LATER AND I WILL COME BACK THEN.
--- NOTE | 2019-02-11 08:30 | NUR ---
PATIENT RESTING IN BED. THIS RN ASSISTED PATIENT UP TO BATHROOM. PATIENT TOELRATED WELL AND IS A STAND-BY ASSIST. PATIENT NOTED TO HAVE BLOOD ON BELLY. ASSISTED BACK TO BED. LOWER PART OF MIDLINE INCISION HAS A SMALL OPENING AN NO STERI STRIP PRESENT. CLEANED SITE AND PLACED NEW STRIP. PATIENT TOELRATED WELL. CALLED MD STAHL TO UPDATE, NO ANSWER. WILL FOLLOW-UP.
--- NOTE | 2019-02-11 10:00 | NUR ---
MD STAHL FOLLOW-UP AND ASKED STAFF TO PLACE STERI-STRIP. NEW STRIP IN PLACE. NO OTHER ISSUES WITH SITE. NO NEW DRAINAGE PRESENT. PATIENT TOLERATED WELL. PATIENT FAMILY IN TO SEE PATIENT. CASE MANAGMENT NOTIFIED OF PATIENT WANTING TO GO TO A FPC. PATIENT ASSESSMENT IS COMPLETED. BREATH SOUNDS CLEAR. PATIENT FINISHED BREAKFAST. PATIENT DENIES ANY OTHER NEEDS AT THIS TIME. WILL CONTINUE TO CLOSELY MONITOR.
--- NOTE | 2019-02-11 11:45 | NUR ---
NEW ORDERES RECIEVED FOR PATIENT TO TRANSFER TO [facility]. PATIENT AND FAMILY IS AGREEABLE TO PLAN OF CARE. PATIENT HAS BEEN UP SEVERAL TIMES TO THE BATHROOM WITH NO ISSUES. PATIENT IS A STAND-BY ASSIST. WILL CONTINUE TO CLOSELY MONITOR.
--- NOTE | 2019-02-11 12:17 | NUR ---
SPOKE WITH PATIENT, DAUGHTER LUISA AND HER IN ROOM. PATIENT LIVES WITH THEM. THERE ARE FEW STEPS INTO HOME. ONE LEVEL THEN. PATIENT DOES HAVE A WALKER. PATIENT IS HOME ALONE DURING DAY HOURS, SON-IN-LAW COMES AND GOES BUT IS NOT A CAREGIVER. DAUGHTER STATES PATIENT HAS HAD MORE AND MORE PROBLEMS WITH MEMORY AND DOING THINGS ON HER OWN. SHE IS WORRIED ABOUT HER FALLING. SHE AND HER STATE THEY DONT HAVE ABILITY TO CARE FOR HER IF SHE NEEDS MORE THAN BEFORE. 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 WE DISCUSSED POSSIBILITIES FOR GROUP HOME NEED VS ACUTE NEED FOR THERAPY. EXPLAINED SHE IS DOING THERAPY HERE AND IS WALKING IN THE HALLS NOW, THAT SHE IS NOT READY FOR DISCHARGE YET. DISCUSSED POSSIBLE STAY AT REHAB CENTER OR HOME HEALTH AND HIRING IN-HOME CARE. PATIENT MONTHLY INCOME IS MORE THAN ALLOWED FOR MEDICAID. DAUGHTER STATES SHE WORKS WITH [employer] AND KNOWS THIS. THEY AND PATIENT ALL WOULD LIKE HER TO GO TO [facility] IF POSSIBLE. DISCUSSED I CAN SEND A PACKET THERE AND SEE IF SHE QUALIFIES. QUESTIONS ANSWERED. WILL CONTINUE TO FOLLOW.
--- NOTE | 2019-02-11 13:00 | NUR ---
PATIENT REPORT GIVEN TO COSTUME RENTAL CLERK. ALL QUESTIONS ANSWERED. PATIENT IS FINISHING UP EATING AT THIS TIME, THEN WILL TRANSFER TO [facility]. GAVE PRN TYLENOL FOR ABD INCISION PAIN. PATIENT DENIES NEEDING ANY OTHER ITEMS AT THIS TIME. WILL GATHER BELONINGS.
--- NOTE | 2019-02-11 13:15 | NUR ---
PATIENT TRANSFERED TO ROOM 108. ALL BELONGINGS SENT WITH PATIENT. RN WILL CALL IF THERE ARE ANY OTHER NEEDS. ALL QUESTIONS ANSWERED AT THIS TIME.
--- NOTE | 2019-02-11 13:30 | NUR ---
FAXED CLINICALS TO [facility]. FAX CONFIRMATION RECEIVED AT 8720.
--- NOTE | 2019-02-11 13:33 | NUR ---
PATIENT ARRIVED FROM CCU. VITALS ARE STABLE, PATIENT MOVED SELF FROM CHAIR TO BED. EDUCATIONAL PSYCHOLOGY TEACHER LILIA IN TO TALK WITH PATIENT, ARRANGE FOR PATIENT TO HAVE COMMUNION WHILE IN THE HOSPITAL.
--- NOTE | 2019-02-11 14:22 | NUR ---
I RECIEVED A CALL THAT THIS PT WANTED COMMUNION. I VISITED WITH HER A FEW MINUTES, PRAYED WITH HER, THEN CONTACTED DEACON POPE. HE SAID HE COULD NOT COME BUT WOULD ARRANGE FOR SOMEONE TO ADMINISTER THE ELEMENTS. MY PRAYER IS THAT THIS PT HAVE COMPLETE RECOVERY.
--- NOTE | 2019-02-11 14:40 | NUR ---
PATIENT UP TO BATHROOM WITH STANDBY ASSIST TO VOID. PATIENT RESTING IN BED, REFUSES SCD'S. SHIFT ASSESSMENT DONE. ABD INCISIONS (SCOPE X3, INO SITE X2, MIDLINE) INTACT WITH STERI STRIPS/AND OR GUAZE, SMALL AMOUNT OF SEROUS DRAINAGE NOTED. PATIENT TOLERATED ACTIVITY WELL, ENDORSES MILD PAIN IN ABDOMEN, WOULD LIKE TYLENOL IF POSSIBLE. NO NAUSEA NOTED.
--- NOTE | 2019-02-11 15:34 | NUR ---
PATIENT GIVEN 2 TYLENOL FOR 5/10 ABDOMINAL PAIN, WARM BLANKET PROVIDED.
--- NOTE | 2019-02-11 17:04 | NUR ---
SHE TRANSFERED FROM CCU I ORDERED HER DINNER. I WILL SEE IF SHE WOULD LIKE TO TAKE A BED BATH BEFORE I GO HOME DON[place].
--- NOTE | 2019-02-11 18:23 | NUR ---
PATIENT UP TO THE BATHROOM TO VOID. PATIENT REPORTS ABD PAIN 5/10, SEEMS COMFORTABLE.
--- NOTE | 2019-02-11 20:30 | NUR ---
coop with assessment, alert and oriented. increased yellow drainage from low abd suture sites, ss in place, ss drainage from old INO site in low R abd side, new ss applied. Applied 2in silk tape to all areas, abd and Abd binder to site. Abd tender, soft, crescencio. states passing gas, had a BM today. Medicated with Tylenol 1000mg po per 5/10 Abd pain and restless leg. 1+ edema at ankles bilat, toes and distal area of feet and heel pink, colder than rest of body "Chip always cold, c/o numbness r/t neuropathy. able to move all extremities well. Tolerating liquids and diet well. no n/v. Pt toleratingabd binder well. Trazadone given on reuqests per c/o insomnia. Call light at bedside, Bed alarm opn as a precaution tonight. Pt stated understanding when situation explained to her. no other requests, 2IV sites patent
--- NOTE | 2019-02-11 20:42 | NUR ---
HELPED PT TO THE BATHROOM AND BACK TO BED. CHANGED PT'S GOWN AND BED FROM LEAKING FROM HER SURG SITE. I INFORMED HER RN PAYAM. BEDSIDE TABLE AND CALL LIGHT IN REACH.
--- NOTE | 2019-02-11 23:17 | NUR ---
UP TO BR, SS DRAINAGE NOTED FROM R UPPER OLD INO SITE AREA, MODERATE AMOUNTS. ABD DRESSING APPLIED, COOP, VOIDED AND HAD A SMALL BM.
--- NOTE | 2019-02-12 00:30 | NUR ---
IN BED, C/O ABD PAIN . MEDICATED WITH TYLENOL 1000MG PO, TURNS SELF IN BED. ABD DRESSING IN PLACE, FRESH SHADOWING, ABD BINDER IN PLACE, TURNS SELF IN BED. CALL LIGHT AT BEDSIDE
--- NOTE | 2019-02-12 01:34 | NUR ---
resting, no distress, abd binder inplace, gown dry, call light at bedside
--- NOTE | 2019-02-12 04:50 | NUR ---
Up to br, voided and had small soft-semiliquid bm, back to bed with 1PA, tolerated well, no SOB. Abd dressing soaked 2 out of 3 abd. drainage yellow pink noted from r abd old celso site and low umbilicus midline area incision and the last 1/2 inch of incision. ss in pace, gauze applied and covered with 2 abd pads andsilk dressing abd binder in place. Pt states "it makes my stomach feel better. Coop with assessment and vitals. No c/o pain or sob at this time, OJ and fresh water given on requests. Call light at bedside, bed alarm on due to fall risk.
--- NOTE | 2019-02-12 05:12 | NUR ---
PT CONTINUES TO BE MORE ALERT, CONFUSED TO SITUATION AT TIMES, EASILY REDIRECTABLE. WAS MEDICATED WITH TYLENOL X2 WITH GOOD PAIN RELIEF. ABD LAP SITES WITH SS, DRAINAGE SS TO YELLOW PRESENT IN UNBILICAL AREA, LOWER END MIDLINE INCISION AREA ABD ON R SITE OLD INO SITE. COVERED WTIH GAUZE, ABD DRESSING, SILK TAPE AND ABD BINDER IN PLACE. SATURATED AT BEGINING OF SHIFT AND NEW DRESSING CHANGED AT 0450. MEDICATED WITH TRAZADONE FOR INSOMNIA SLEPT AT LEAST 3 HOURS THIS SHIFT. TOLERATED DRESSING CHANGES WELL. TOLERATING DIET AND FLUIDS WELL, NO N/V. USING CALL LIGHT ADEQUATELY. BED ALARM ON, ON ROOM AIR, USES 1PA
--- NOTE | 2019-02-12 05:52 | NUR ---
up to br, voided, had a smear of bm, back to bed, tolerated well !PA. Medicated with Tylenol 1000mg po c/o 10/26 abd pain.
--- NOTE | 2019-02-12 07:43 | NUR ---
0700: BEDSIDE REPORT RECIEVED FROM PAYAM NOVA. PT RESTING IN HER BED AND SHE STATES HER PAIN IS UNDER CONTROL. CALL DE LEON WITHIN REACH AND BED ALARM IS ON. ABD BINDER IS IN PLACE AND THE DRESSING IS INTACT AT THIS TIME.
--- NOTE | 2019-02-12 08:15 | NUR ---
SPOKE WITH PATIENT IN ROOM. PATIENT SITTING UP AT SIDE OF BED WITH BREAKFAST. PATIENT ORIENTED. DISCUSSED THAT THERAPIST DOES NOT THINK SHE QUALIFIES FOR SNF STAY AND ALSO THAT I SPOKE WITH HER REQUESTED SNF [facility] AND THEY ARE FULL AT LEAST UNTIL FRIDAY. SHE STATES SHE WILL "GO HOME AND GO NEXT WEEK". AGAIN DISCUSSED THAT THERAPISTS DO NOT THINK SHE NEEDS INPATIENT REHAB, THAT SHE CAN DO OUTPATIENT. 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 DISCUSSED THAT HER DAUGHER LEFT ME A MESSAGE AND I WILL RETURN THE CALL AND LET HER KNOW WHAT I'VE TALKED WITH HER ABOUT. SHE IS OK WITH THIS.
--- NOTE | 2019-02-12 08:27 | NUR ---
PT SITTING AT THE BEDSIDE EATING BREAKFAST AT THIS TIME. SHE DENIES ANY PAIN AT THIS TIME AND HER CALL DE LEON IS WITHIN REACH. DRESSING CDI.
--- NOTE | 2019-02-12 09:24 | NUR ---
DAUGHTER FIDE CALLED CONCERNED ABOUT BREAST MASS AND CONCERNED ABOUT DISCHARGE HOME. DISCUSSED WITH FIDE THAT PT HAS BEEN MOVING WELL, HAS BEEN GETTING OUT OF BED INDEPENDENTLY AND WALKING WELL. DISCUSSED MASS WITH DR. STAHL, MASS WILL BE FOLLOWED UP AN OUTPATIENT AND DOES NOT NEED FURTHER EVALUATION DURING THIS ADMISSION. DR. STAHL TO BEDSIDE TO EVALUATE PT, DRESSINGS REMOVED, OK TO SHOWER, PLAN FOR DISCHARGE TODAY. CALL MADE TO REGIS TO UPDATE HER ON BREAST MASS AND PLAN FOR DISCHARGE, SHE WILL BE AVAILABLE FOR DISCHARGE EARLY AFTERNOON.
--- NOTE | 2019-02-12 09:30 | NUR ---
RECEIVED PHONE CALL FROM DAUGHTER, LUISA. SHE STATES SHE UNDERSTANDS THAT PATIENT IS COMING HOME. SHE STATES SHE HEARD [facility] IS FULL. DISCUSSED THAT I DID GET CALL FROM [facility] THAT THERE IS NO OPENING UNTIL AFTER FRIDAY, AND THAT THERAPIST IS SAYING PATIENT DOES NOT MEET SKILLED NEED AT THIS POINT. DISCUSSED I TALKED WITH PATIENT AND GAVE HER BROCHURE TO HELPING HANDS IF THEY WANT TO HIRE SOME IN-HOME CARE. DAUGHTER SPOKE AT LENGTH THAT IT ISN'T THE PROBLEM OF PATIENT BEING ABLE TO DO THINGS, IT IS SHE MANIPULATES THEM. SHE "PRETENDS SHE CAN'T DO STUFF TO GET ATTENTION". 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 DISCUSSED THAT SHE CAN DISCUSS WITH PATIENTS PCP HER BEHAVIORS, ALSO THEY CAN TRY MENTAL HEALTH SCREENING. DISCUSSED SHE HAS THE CHOICE OF LETTING PATIENT LIVE WITH HER OR ASKING OTHER FAMILY FOR HELP OR HAVING PATIENT GET A CORRECTION APARTMENT OR SPACE IN A ASSISTED LIVING FACILITY. I DISCUSSED I CAN GIVE HER THE NAMES OF A FEW PLACES, BUT SHE STATES SHE KNOWS THEM PRETTY WELL. SHE STATES SHE IS GOING TO TALK WITH HER BROHTERS AND THE PCP. QUESTIONS ANSWERED AT THIS TIME.
--- NOTE | 2019-02-12 10:30 | NUR ---
PT COMPLETED WITH SHOWER, GAUZE PLACED OVER INO INSERTIONS SITES X2 AND MIDLINE INCISION TO HELP WITH DRAINAGE, ABD BINDER REPLACED. PT DENIES OTHER NEEDS AT THIS TIME.
--- NOTE | 2019-02-12 11:03 | NUR ---
PT SHOWERED WITH THE ASSISTANCE OF THE AIDE AND SHE TOLERATED IT WELL. DRESSING WAS REPLACED BY ANOTHER RN AFTER THE SHOWER. THERE IS A SMALL AMOUNT OF NOTED DRAINAGE TO THE RIGHT UPPER QUAD SURGICAL SITE, DRESSING REINFORCED AND THE ABD BINDER WAS REPLACED. THE OTHER SITE ARE CDI. PT STATES SHE IS HER ABD PAIN IS AN 8/10 SINCE THE SHOWER BUT DECLINES PAIN MEDICATION STATING SHE THINKS IT WILL DECREASE WITH A LITTLE TIME. PT APPEARS IN NO DISTRESS AT THIS TIME. PT WAS ABLE TO GET OUT OF BED AND WALK AROUND IN THE ROOM AND GET HERSELF BACK TO BED WITHOUT ANY HELP AND SHE WAS STEADY ON HER FEET.
[2019-02-12] MEDS ORDERED: AMLODIPINE BESY10 MG PO (11:50)
--- NOTE | 2019-02-12 14:11 | NUR ---
PT RESTING IN HER BED, SHE STATES SHE HAS SOME PAIN BUT THAT IT'S UNDER CONTROL AND SHE DECLINES THE NEED FOR ANYTHING. PT STATES THAT SHE IS LOOKING FORWARD TO GOING HOME TODAY.
[2019-02-12] MEDS ORDERED: GLUCOPHAGE500 MG PO (15:05)
[2019-02-12] MEDS ORDERED: ESCITALOPRAM OXA5 MG PO (15:05)
[2019-02-12] MEDS ORDERED: METOPROLOL SUCC50 MG PO (15:05)
[2019-02-12] MEDS ORDERED: ATORVASTATIN CA20 MG PO (15:05)
[2019-02-12] MEDS ORDERED: LEVOTHYROXINE50 MCG PO (15:05)
[2019-02-12] MEDS ORDERED: ACTOS15 MG PO (15:05)
[2019-02-12] MEDS ORDERED: OMEPRAZOLE20 MG PO (15:05)
[2019-02-12] MEDS ORDERED: TRAZODONE HCL50 MG PO (15:05)
[2019-02-12] MEDS ORDERED: CYMBALTA20 MG PO (15:05)
== END 2019-02-12 15:35 | disposition home or self-care (01) | DRG 919 ==
LOC: ED 15:12 → MS 15:13 → CCU 02-07 10:45 → MS 02-11 13:30
PROVIDERS: ADMIT Surgery
PROC: 30233N1 Transfusion of Nonautologous Red Blood Cells into Peripheral Vein, Percutaneous Approach (ICD-10-PCS; principal; 2019-02-09)
DX: K91.840 Postprocedural hemorrhage of a digestive system organ or structure following a digestive system procedure (principal); G93.41 Metabolic encephalopathy; K66.1 Hemoperitoneum; J98.11 Atelectasis; D62 Acute posthemorrhagic anemia; T81.31XA Disruption of external operation (surgical) wound, not elsewhere classified, initial encounter; I10 Essential (primary) hypertension; E11.9 Type 2 diabetes mellitus without complications; K21.9 Gastro-esophageal reflux disease without esophagitis; E78.5 Hyperlipidemia, unspecified; T41.205A Adverse effect of unspecified general anesthetics, initial encounter; E03.9 Hypothyroidism, unspecified; F39 Unspecified mood [affective] disorder; G47.00 Insomnia, unspecified; D69.59 Other secondary thrombocytopenia; D72.829 Elevated white blood cell count, unspecified; E83.42 Hypomagnesemia; E66.9 Obesity, unspecified; T40.2X5A Adverse effect of other opioids, initial encounter; Y92.239 Unspecified place in hospital as the place of occurrence of the external cause; K74.60 Unspecified cirrhosis of liver; Z90.49 Acquired absence of other specified parts of digestive tract; Z79.84 Long term (current) use of oral hypoglycemic drugs; Z79.1 Long term (current) use of non-steroidal anti-inflammatories (NSAID); Z79.891 Long term (current) use of opiate analgesic; Z79.899 Other long term (current) drug therapy; Z68.29 Body mass index [BMI] 29.0-29.9, adult
CPT/HCPCS: 00790; 36415; 36430; 36600; 71045; 74178; 74300; 80048; 80053; 81001; 82247; 82465; 82803; 83010; 83036; 83615; 83690; 83735; 84100; 84478; 84550; 85002; 85025; 85240; 85245; 85610; 85730; 86850; 86900; 86901; 86920; 86927; 94002; 94003; 94667; 94668; 94760; 94762; 96361; 96374; 96375; 97162; 99284-25; J0131; J0360; J0690; J1100; J1644; J1815; J1885; J2250; J2270; J2370; J2405; J2550; J2704; J3010; J3475; J7030; J7060; J7120; J7121; P9016; P9035; Q9967

== ENCOUNTER 2019-04-29 07:00 | Day surgery (SDC) | payer MEDICARE ==
[~2019-04-29] VITALS: Ht 162.6 cm; Wt 76.2 kg
[~2019-04-29 07:00] MED LIST changes: +ACTOS15 MG PO; +AMLODIPINE BESY10 MG PO; +ATORVASTATIN CA20 MG PO; +DICLOFENAC SOD100 G1 TOP; +ENDOCET 7.5-321 EACH PO; +ESCITALOPRAM OXA5 MG PO; +GLUCOPHAGE500 MG PO; +HM CALCIUM-MAG1 EACH PO; +HYDROXYZINE HCL10 MG PO; +LISINOPRIL10 MG PO; +MELOXICAM15 MG PO; +METOPROLOL SUCC50 MG PO; +ONDANSETRON ODT8 MG PO; +TRAZODONE HCL50 MG PO; +TYLENOL EXTRA500 MG PO
--- NOTE | 2019-04-29 10:01 | NUR ---
04/29/19 Sara1 Carrol Lazcano 8786-PATIENT ARRIVED TO PACU ON 6L MASK REACTIVE TO VERBAL STIMULI OPENING EYES. ENCOURAGED DEEP BREATHING. INCISION SITE TO RIGHT BREAST CDI. IVF INFUSING. SR. [id number]-GLUCOSE [id number]
[2019-04-29] MEDS ORDERED: IBUPROFEN600 MG PO (10:12)
[2019-04-29] MEDS ORDERED: OXYCODON-ACETA1 EAC2 PO (10:13)
[2019-04-29] MEDS ORDERED: OFIRMEV1000 MG/10 IV (10:13)
[2019-04-29] MEDS ORDERED: TYLENOL EXTRA500 MG PO (10:14)
--- NOTE | 2019-04-29 10:43 | NUR ---
PT ALERT, ORIENTED AND ALITTLE SUBDUED. HAD GOOD VISIT WITH PT, MENTIONED THAT SHE RECENTLY MOVED TO THE AREA TO BE WITH HER DAUGHTER FOLLOWING THE OF HER . PT REQUESTED PRAYER, WILL FOLLOW NEEDED
--- NOTE | 2019-04-29 10:49 | NUR ---
CALL FROM DR. COOK OFFICE IN REGARDS TO A PRESCRIPTION THAT WAS SENT TO [facility] FOR IV TYLENOL. NOTIFIED DR. STAHL. VERBAL ORDER CALLED INTO TO [facility] FOR PO TYLENOL.
--- NOTE | 2019-04-29 10:49 | NUR ---
ICED WATER AND PUDDING GIVEN. CALL LIGHT IS WITHIN REACH. FAMILY IS AT THE BEDSIDE.
--- NOTE | 2019-04-29 11:46 | NUR ---
LE 1130: PATIENT ASKS TO USE THE RESTROOM. PATIENT AMBULATES USING HER CANE AND SHE DOES WELL WITH THAT. PATIENT VOIDS AND AMBULATES BACK TO HER ROOM. PATIENT IS ASSISTED DRESSED AND WE ARE WAITING FOR HER SON-IN-LAW TO ARRIVE TO GIVE DISCHARGE INSTRUCTIONS. PATIENT IS RESTING QUIETLY IN THE BED AND DENIES ADDITIONAL NEEDS AT THIS TIME.
--- NOTE | 2019-04-29 13:32 | NUR ---
LE 1150: DISCHARGE INSTRUCTIONS GIVEN IN PRESENCE OF PATIENT'S SON-IN-LAW AND BOTH VERBALIZE UNDERSTANDING. PATIENT TRANSFERS TO WHEELCHAIR AND DOES THAT WELL AND IS DISCHARGED HOME.
--- NOTE | 2019-04-30 20:40 | EKG ---
[facility] [address] [facility] [place] [address] Signed Sinus rhythm with occasional premature ventricular complexes Otherwise normal ECG No previous ECGs available Confirmed by MARY PIMENTEL MD ([id number]) on 04/30/2019 8:39:42 PM Electronically Signed By: MARY PIMENTEL MD 04/30/192039 PATIENT NAME: CARLO MATHIAS Electrocardiogram DATE OF : 40 PHYSICIAN: MARY PIMENTEL MD REPORT #: [id number] REPORT IS CONFIDENTIAL AND NOT TO BE RELEASED WITHOUT AUTHORIZATION
--- NOTE | 2019-05-03 18:26 | OR ---
[facility] [address] [place], [place] [address] Signed DATE OF OPERATION: 04/29/2019 SURGEON: Saturnino Stahl MD PREOPERATIVE DIAGNOSES: 1. Right inferolateral breast mass BI-RADS category 4. 2. Family history of breast cancer (two sisters). POSTOPERATIVE DIAGNOSES: 1. Right inferolateral breast mass BI-RADS category 4. 2. Family history of breast cancer (two sisters). Lesion suspicious for malignancy. PROCEDURE: Inframammary wide excision (partial mastectomy) of neoplasm of right breast. ANESTHESIA: General LMA; Saturnino Muñoz CRNA, and local 10 mL of 0.25% Marcaine with epinephrine. INDICATION: This 79-year-old white woman is a patient of Dr. Tiffany coates. In January, she underwent laparoscopic cholecystectomy for acute cholecystitis, was noted to have postoperative bleeding. Incidentally noted at laparoscopic cholecystectomy with cirrhosis of the liver. This was not advanced but nevertheless present and confirmed by biopsy. She returned to the OR for laparoscopic evaluation and withdrawal of abdominal clot and placement of drain in the subhepatic space, though a specific bleeding site was not found. She had recurrent bleeding. On that basis, a CT scan of the abdomen was performed with IV contrast, which affirmed a blush in the omentum inferior to the infraumbilical trocar site. This was managed by partial omentectomy for hemorrhage within the omentum. Incidentally noted on the CT scan, however, was a dense mass in the right breast in the inferior lateral aspect. Subsequent evaluation of the breast mass has included a mammogram and ultrasound, which showed the lesion to be highly suspicious for malignancy. She does have family history of breast cancer in two sisters, though her mother and daughter have not had breast problems. She is admitted at this time to undergo excision of the mass for diagnosis and likely for treatment. She understands as does her daughter who attends to her, the risks of Electronically Signed By: SATURNINO STAHL MD 05/03/19 1826 PATIENT NAME: CARLO MATHIAS OPERATIVE REPORT DATE OF : 40 REPORT #: [id number] PHYSICIAN: SATURNINO STAHL MD PCP: TIFFANY BLACKMON MD REPORT IS CONFIDENTIAL AND NOT TO BE RELEASED WITHOUT AUTHORIZATION [facility] [address] [place] [id number] Signed bleeding, infection, need for additional treatment, particularly if malignancy is found and other unforeseen complications. She understands that and she wished to proceed. FINDINGS: The mass was palpable in the inferior aspect of the breast somewhat laterally on the right side. An inframammary crease was used to provide optimal cosmesis. Wide resection was undertaken typical of a partial mastectomy for breast cancer given the consistency of the mass and high probability represents malignancy. There were no problems and no bleeding issues so far as could be told. DESCRIPTION OF PROCEDURE: The patient was brought to the operating room, given a general anesthetic by LMA technique. Preoperative antibiotic Ancef was given. Sequential compression device stockings used and heparin subcutaneously administered. The right breast and chest wall were prepared with a chlorhexidine solution and draped sterilely. The palpable mass was noted in the inferior aspect somewhat laterally. The inframammary incision was made along the line of skin tension and dissection carried through the dermis with electrocautery. Wide resection was undertaken incorporating normal tissue around the mass, so as to provide a negative margin on the high probability represents malignancy. Once completely excised, the specimen was oriented with a short stitch superior, long stitch laterally, and a double stitch in the deep margin. It appeared to be a grossly negative margin. Irrigation was undertaken in the wound and electrocautery used for hemostasis additionally. The wound was then closed in layers with interrupted 2-0 Vicryl and a running subcuticular 3-0 Vicryl for the skin. Steri-Strips were applied as was a silver sponge dressing and an OpSite. The patient tolerated procedure well. Blood loss was less than 10 mL. Sponge, needle, and instrument counts reported as correct x3. MD BRIDGET Davis/MODL /[id number] cc: Tiffany Blackmon MD Electronically Signed By: SATURNINO STAHL MD 05/03/19 1826 PATIENT NAME: CARLO MATHIAS OPERATIVE REPORT DATE OF : 40 REPORT #: [id number] PHYSICIAN: SATURNINO STAHL MD PCP: TIFFANY BLACKMON MD REPORT IS CONFIDENTIAL AND NOT TO BE RELEASED WITHOUT AUTHORIZATION [address] [address] Signed Chiara Ortiz MD Copies: TIFFANY BLACKMON DMD, CYNTHIA SUE MD ~ Electronically Signed By: SATURNINO STAHL MD 05/03/19 1826 PATIENT NAME: CARLO MATHIAS OPERATIVE REPORT DATE OF : 40 REPORT #: [id number] PHYSICIAN: SATURNINO STAHL MD PCP: TIFFANY BLACKMON MD REPORT IS CONFIDENTIAL AND NOT TO BE RELEASED WITHOUT AUTHORIZATION
--- NOTE | 2019-05-07 18:25 | PATH ---
[facility] [address] [facility] [place], [place] [address] Signed SPECIMEN(S): A RIGHT BREAST SPECIMEN SOURCE: A. RIGHT BREAST CLINICAL HISTORY: Lump in right breast. 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 - See comment. COMMENT: Sections demonstrate a tumor comprised of well circumscribed expansive nodules containing ovoid to spindled tumor cells, sometimes with a streaming appearance, growing in both solid and papillary patterns with areas of cribriform-like spaces. A fibrovascular network is present within the solid tumor nodules and areas of pseudorosette formations are seen. This mass is grossly measured at 2.0 cm in greatest dimension. Adjacent to this main tumor mass is an area of cribriform type DCIS discontinuously spanning an area of 4 mm. Immunohistochemical stains (with appropriately staining controls) were performed. The cells of the larger nodular tumor mass demonstrate diffuse and strong ER positivity and complete negativity CK5/6, synaptophysin and chromogranin. The absence of myoepithelial cells within and surrounding the nodular tumor mass is confirmed by the lack of CK5/6, smooth muscle myosin heavy chain, and p63 staining. The adjacent area of classic cribriform DCIS shows the presence of surrounding myoepithelial cells with CK5/6, smooth muscle myosin heavy chain, and p63. The morphologic features and immunophenotypic profile is suggestive of a solid papillary carcinoma with a small adjacent area of DCIS. No classic invasive carcinoma is present. The classic cribriform DCIS is 1.8 mm from the posterior (closest) surgical margin. The nodular tumor mass is 0.4 mm from the posterior margin and 3 mm from both the anterior and superior margins; all other margins are widely negative. Due to the rarity of this diagnosis and atypical features present, this case is being sent for outside consultation. Final classification, staging, and PATIENT NAME: CARLO MATHIAS PATHOLOGY DATE OF : 40 REPORT #: [id number] PHYSICIAN: CRISTAL PATHOLOGY PCP: TIFFANY BLACKMON MD REPORT IS CONFIDENTIAL AND NOT TO BE RELEASED WITHOUT AUTHORIZATION [facility] [address] [place], [place] [address] Signed biomarkers will be reported in an addendum. As part of [facility]' Quality Improvement Program, this case was reviewed by another member of our pathology staff. NAL: :smn:cml:C1NR MICROSCOPIC EXAMINATION: Histologic sections of all submitted blocks are examined by light microscopy. These findings, together with the gross examination, support the pathologic diagnosis. GROSS DESCRIPTION: The specimen, labeled "ST, right breast biopsy," is received in formalin and consists of a 36 g, 7.1 x 5.3 x 2.0 cm portion of davis-yellow and lobulated fibroadipose tissue. There are 3 sutures present designated as short superior, long lateral and double deep. Ink code: Superior-blue, inferior-green, medial-red, lateral-orange, anterior-yellow and posterior-black. The specimen is serially sectioned from medial to lateral into 19 slices. Within slices 9-13 there is a 2.0 x 1.8 x 1.8 cm davis well-defined mass. The mass abuts the posterior margin and comes within 0.4 cm of the superior margin, 0.5 cm of the anterior margin, 1.5 cm from the inferior margin, 2.7 cm from the lateral margin and 3.3 cm from the medial margin. A biopsy clip is not grossly identified within the mass. The uninvolved breast parenchyma is davis-yellow and lobulated with minimal davis-white fibrous areas occupying less than 5% of the cut surface. Cassette summary: (A1) Medial margin perpendicular (A2) Metal Machinist section of mass (A3-A4) Slice 10 submitted entirely with relationship to margins (A5-A7) Remainder of mass with margins (A8) Lateral margin perpendicular. Cold ischemic time: Cannot be determined because of lack of information. Approximate time in formalin: 24-36 hours. AM (under the direct supervision of a pathologist) The Gross Description was prepared using a voice recognition system. The report was reviewed for accuracy; however, sound-alike word errors, addition and/or deletions may occur. If there is any question about this report, please contact Client Services. ADDITIONAL NOTES: Immunohistochemical and/or in situ hybridization studies were performed on this PATIENT NAME: CARLO MATHIAS PATHOLOGY DATE OF : 40 REPORT #: [id number] PHYSICIAN: CRISTAL PATHOLOGY PCP: TIFFANY BLACKMON MD REPORT IS CONFIDENTIAL AND NOT TO BE RELEASED WITHOUT AUTHORIZATION [facility] [address] [place] [id number] Signed case with the appropriate positive controls that react as expected. This test was developed and its performance characteristics determined by [employer]. It has not been cleared or approved by the U.S. Food and Drug Administration. The FDA has determined that such clearance or approval is not necessary. This test is used for clinical purposes. It should not be regarded as investigational or for research. [facility] is certified under the Clinical Laboratory Improvement Amendments of 1988 (CLIA) as qualified to perform high complexity clinical laboratory testing. PERFORMING LABORATORY: The technical component was performed by [facility] [facility], [address] [place] [address] (Russian History Professor: Vikki Cisse MD; CLIA# [id number]). Professional interpretation was performed by [employer], [facility], [address] [place] [address] (Russian History Professor: John Buckner MD; CLIA# [id number]). Diagnostician: Shakira Patterson MD Pathologist Electronically Signed 05/07/2019 Copies: ~ PATIENT NAME: CARLO MATHIAS PATHOLOGY DATE OF : 40 REPORT #: [id number] PHYSICIAN: SHELLYUrjanet PATHOLOGY PCP: TIFFANY BLACKMON MD REPORT IS CONFIDENTIAL AND NOT TO BE RELEASED WITHOUT AUTHORIZATION
== END 2019-04-29 11:55 | disposition home or self-care (01) ==
LOC: DS 07:00 → OPS 07:00 → DS 08:30 → OPS 11:55
PROVIDERS: Surgery
PROC: 0HBT0ZZ Excision of Right Breast, Open Approach (ICD-10-PCS; principal; 2019-04-29 08:30)
DX: N63.10 Unspecified lump in the right breast, unspecified quadrant (principal); F32.9 Major depressive disorder, single episode, unspecified; E11.9 Type 2 diabetes mellitus without complications; I10 Essential (primary) hypertension; D64.9 Anemia, unspecified; K21.9 Gastro-esophageal reflux disease without esophagitis; Z80.0 Family history of malignant neoplasm of digestive organs; Z80.3 Family history of malignant neoplasm of breast; Z79.84 Long term (current) use of oral hypoglycemic drugs; Z79.899 Other long term (current) drug therapy; Z86.73 Personal history of transient ischemic attack (TIA), and cerebral infarction without residual deficits
CPT/HCPCS: 00404; 88307; 88341; 88342; 88360; 88377; 93005; 93010; J0131; J0690; J1100; J1644; J1885; J2250; J2405; J2704; J2765; J3010; J7121

== ENCOUNTER 2019-06-24 07:05 | Day surgery (SDC) | payer MEDICARE ==
[~2019-06-24] VITALS: Ht 162.6 cm; Wt 76.2 kg
[~2019-06-24 07:05] MED LIST changes: +IBUPROFEN600 MG PO; +OFIRMEV1000 MG/10 IV; +OXYCODON-ACETA1 EAC2 PO; +TRAMADOL HCL50 MG PO
--- NOTE | 2019-06-24 07:17 | NUR ---
PT ARRIVES TODAY FOR SURGERY. PROVIDED WARM BLANKET AND CHLORAHEXADINE WIPES. PT REFUSES TO USE WIPES AND STATES, "THOSE MAKE ME TERRIBLY ITCHY." WIPES REMOVED FROM PT ROOM PER REQUEST.
--- NOTE | 2019-06-24 08:10 | NUR ---
PT TO X-RAY, IV SALINE LOCKED WITH ROHINI MATOS. FAMILY UNDATED.
--- NOTE | 2019-06-24 09:39 | NUR ---
0930 PT BACK FROM X-RAY AND BACK TO BED. PT REPORTS LOW BACK AND RIGHT HIP PAIN WHICH SHE REPORTS CHRONIC, PT REPORTS ICE HELPS. RN PLACED ICE PACK TO LOW BACK AND RIGHT HIP. FAMILY AT BEDSIDE. CALL LIGHT WITHIN REACH AND IV ON TKO.
--- NOTE | 2019-06-24 10:16 | NUR ---
PAIN MEDICATION GIVEN PER SHEET METAL SMITH WITH SMALL SIP OF WATER. PT UP TO BATHROOM. FAIMLY UPDATED. PT BACK TO BED WITH ICE TO HIP.
--- NOTE | 2019-06-24 11:40 | NUR ---
1122 PAIN MEDICATION GIVNE PER EMAR AND SPRING FORMER MACHINE. OTHER PRE MEDS GIVEN PER SPRING FORMER MACHINE. PT UP TO COMMODE, PT REPORT SMALL AMOUNT OF DIZZINESS. ABOUT 100ML OF URINE NOTED. PT BACK TO BED AND REPORTS NO CHANGE OF PAIN. 1134 SECOND DOSE OF PAIN MEDICATION GIVEN PER SPRING FORMER MACHINE. O2 SAT 100%. PT TALKING TO RN AND REPORT ANXIETY ABOUT SURGERY AND SON IN HOSPITAL. RN REASSURE PT AND EDUCAITON GIVEN ABOUT PROCESS OF SURGERY TODAY. ICE PACK REPLACED ON LOWER BACK AND CALL LIGHT WITHIN REACH.
--- NOTE | 2019-06-24 13:14 | NUR ---
RN TO ROOM, VSS AND CBG CHECKED. PT CONTINUES TO REPORT PAIN IN HER BACK. PT UP TO COMMODE AND VOIDED, PT BACK TO BED AND ICE TO LOWER BACK. PT UPDATED.
--- NOTE | 2019-06-24 13:22 | NUR ---
SCD'S ON PT AND IV FLUSHED. BP CUFF PLACED ON LEFT ARM. PT UPDATED.
--- NOTE | 2019-06-24 14:47 | NUR ---
SERVICE RECOVERY COUPONS GIVEN TO FAMILY. THEY ARE APPRECIATED AND UNDERSTANDING OF WAIT.
--- NOTE | 2019-06-24 14:52 | NUR ---
SATURNINO LR CRNA VERBALLY ORDERS PAIN MEDICATION; SEE EMAR. CONT PULSE OXIMETER PLACED PRIOR TO MEDICATION GIVEN. PT ABLE TO MAINTAIN SATS GREATER THAN 94% ON RA. PT RATES PAIN 6/10 IN "LOWER BACK AND DOWN RIGHT LEG." FAMILY AT BEDSIDE, CALL LIGHT WITHIN REACH.
--- NOTE | 2019-06-24 15:05 | NUR ---
1500 ASSISTED UP TO BSC. WASHED HANDS AND RETURNED TO BED. RATES PAIN 5/10. HAS BEEN UPDATED ON WAIT SEVERAL TIMES TODAY. OK WITH WAIT.
--- NOTE | 2019-06-24 16:37 | NUR ---
06/24/19 1637 Dorothy Pagan 1622 PATIENT TO RECOVERY BEDSIDE REPORT FROM SATURNINO LR CRNA. PATIENT VERBALIZES NO PAIN. OXY MASK ON 6L, BREATHING EVEN AND UNLABORED. EYES OPEN. 1630 PATIENT TITRTED TO ROOM AIR, ENCOURAGING TO COUGH AND DEEP BREATH TOLERATING WELL. VERBALIZES NO PAIN, RATES 0/10. 1635 PATIENT DROWSY, WAKES TO VERBAL STIMULUS. ENCOURAGING COUGHING AND DEEP BREATHING. PATIENT ASKING QUESTIONS. REASSURED DR. STAHL WOULD BE TO BEDSIDE TO ANSWER QUESTIONS SOON.
[2019-06-24] MEDS ORDERED: IBUPROFEN600 MG PO (16:49)
[2019-06-24] MEDS ORDERED: HYDROCODON-ACE1 EA10 PO (16:50)
[2019-06-24] MEDS ORDERED: TYLENOL EXTRA500 MG PO (16:50)
--- NOTE | 2019-06-24 17:53 | NUR ---
DISCHARGE INSTRUCTIONS ARE GIVEN TO PATIENT IN THE PRESENCE OF HER FAMILY. ALL VERBALIZE UNDERSTANDING. PATIENT TRANSFERS HERSELF TO THE BEDSIDE COMMODE AND TOLERATES THAT WELL. PATIENT VOIDS AND IS ASSISTED DRESSED BY RN. PATIENT TRANSFERS HERSELF TO THE WHEELCHAIR AND TOLERATES THAT WELL.
--- NOTE | 2019-06-24 18:01 | NUR ---
UP TO C VOIDS 300MLS. HAS EATEN PUDDING DRANK SPRITE . DRESSED AND ABLE TO GO HOME.
--- NOTE | 2019-06-25 18:30 | OR ---
[facility] [address] [place], [place] [address] Signed DATE OF OPERATION: 06/24/2019 SURGEON: Saturnino Stahl MD PREOPERATIVE DIAGNOSIS: This 79-year-old white woman is a patient of Dr. 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 This is an uncommon malignancy with highly variable level of potential for progression in metastatic disease. Excision shows completely negative margins. I have recommended sentinel lymph node biopsy to be undertaken and if positive, complete axillary dissection. It is recalled that her initial issue was that of cholecystitis with subsequent bleeding complications of omentum incidentally finding a right breast lesion on a CT scan performed at that time. She has healed up completely from her excision of the primary tumor and is here at this time to undergo sentinel lymph node biopsy, possible axillary dissection depending on frozen pathology. She understands as does her daughter the risks of bleeding, infection, arm edema, need for axillary dissection, and other unforeseen complications and wished to proceed. FINDINGS: Localization by radiography was quite good. Additionally, the methylene blue dye uptake was quite good as well. Two sentinel lymph nodes were identified. Both were found to be benign on frozen pathology. DESCRIPTION OF PROCEDURE: The patient was brought to the operating room, given a general anesthetic. She had undergone radionuclide sentinel lymph node injection in Radiology. After satisfactory general endotracheal anesthesia, the right periareolar area was prepared with an alcohol swab and injection of 1 mL of methylene blue dye undertaken the subepithelial space. The breast and axilla were prepared with a DuraPrep type solution and draped sterilely. Using a covered C-Trak gamma probe, the area of maximum uptake to the axilla was identified and a small transverse incision was made. Dissection was carried through the subcutaneous layer with electrocautery and blunt dissection. Immediately noted were blue lymphatic channels which allowed for tracing of the channels to the sentinel lymph node without problem. The lymph node was somewhat enlarged about 1.5 cm at least in size. Adjacent to it was another sentinel lymph node separate and distinct. Both were Electronically Signed By: SATURNINO STAHL MD 06/25/19 183 PATIENT NAME: CARLO MATHIAS OPERATIVE REPORT DATE OF : 40 REPORT #: [id number] PHYSICIAN: SATURNINO STAHL MD PCP: TIFFANY BLACKMON MD REPORT IS CONFIDENTIAL AND NOT TO BE RELEASED WITHOUT AUTHORIZATION [facility] [address] [place], [place] [address] Signed excised in one specimen and both were marked with a suture. Further interrogation of the axilla showed no other signs of radionuclide uptake for lymph nodes particularly. The lymph nodes were sent for permanent pathology. Irrigation was undertaken and cautery used for hemostasis. The wound was closed with interrupted 2-0 Vicryl and a running subcuticular 3-0 Vicryl for the skin. Steri-Strips were applied as was a silver sponge dressing. By this point, the frozen pathology from Dr. Patterson returned confirming neither sentinel lymph node to have metastatic disease. No further dissection was therefore indicated. She was taken to recovery room in good condition having suffered no complications. Sponge, needle, and instrument counts reported as correct x3. Saturnino Stahl MD JM/MODL /[id number] cc: MD Chiara Mahoney MD Copies: TIFFANY BLACKMON DMD, CYNTHIA SUE MD ~ Electronically Signed By: SATURNINO STAHL MD 06/25/19 1830 PATIENT NAME: CARLO MATHIAS OPERATIVE REPORT DATE OF : 40 REPORT #: [id number] PHYSICIAN: SATURNINO STAHL MD PCP: TIFFANY BLACKMON MD REPORT IS CONFIDENTIAL AND NOT TO BE RELEASED WITHOUT AUTHORIZATION
--- NOTE | 2019-06-28 14:30 | PATH ---
[facility] [address] [place], [place] [address] Signed SPECIMEN(S): A SENTINEL LYMPH NODE 1 AND 2 SPECIMEN SOURCE: A. SENTINEL LYMPH NODE 1 AND 2 CLINICAL HISTORY: Infiltrating ductal carcinoma. FROZEN SECTION DIAGNOSIS: A. Cement lymph nodes #1 and #2: - No evidence of malignancy in employee representative sections frozen. Do Patterson M.D. 06/24/2019 4:11 p.m. Frozen section diagnoses called to Dr. Page at 4:11 PM. NRT:cml FINAL PATHOLOGIC DIAGNOSIS: Right axillary sentinel lymph nodes 1 and 2, excision: - Negative for metastatic malignancy on HE stained and immunostained sections. LJA:emb:C2NR MICROSCOPIC EXAMINATION: Sections of lymph node are negative for metastatic malignancy on HE stained sections. Per protocol, immunostain for CKAE1/AE3 is obtained, along with an appropriately positive control, on block A1. The immunostained slides are also negative for metastatic malignancy. LJA:emb GROSS DESCRIPTION: The specimen, labeled "ST, A" and "sentinel lymph node #1 and #2," is received fresh for frozen section diagnosis and consists of a 3.7 x 2.6 x 0.4 cm portion of fat with a 0.6 x 0.5 x 0.5 cm (short stitch) lymph node and 1.6 x 0.8 x 0.5 cm lymph node (long stitch). Both lymph nodes are bisected and half of each is submitted for frozen section. The remaining half of each lymph node is submitted in cassette (A2). DEVONTE (under the direct supervision of a pathologist) The Gross Description was prepared using a voice recognition system. The report was reviewed for accuracy; however, sound-alike word errors, addition and/or deletions may occur. If there is any question about this report, please contact Client Services. PATIENT NAME: CARLO MATHIAS PATHOLOGY DATE OF : 40 REPORT #: [id number] PHYSICIAN: CRISTAL PATHOLOGY PCP: TIFFANY BLACKMON MD REPORT IS CONFIDENTIAL AND NOT TO BE RELEASED WITHOUT AUTHORIZATION [facility] [address] [facility] [place], [place] [address] Signed ADDITIONAL NOTES: Immunohistochemical and/or in situ hybridization studies were performed on this case with the appropriate positive controls that react as expected. This test was developed and its performance characteristics determined by [employer]. It has not been cleared or approved by the U.S. Food and Drug Administration. The FDA has determined that such clearance or approval is not necessary. This test is used for clinical purposes. It should not be regarded as investigational or for research. [employer] is certified under the Clinical Laboratory Improvement Amendments of 1988 (CLIA) as qualified to perform high complexity clinical laboratory testing. PERFORMING LABORATORY: The [facility] section was performed by [facility], [address] [place] [address] [facility] [email or web address] [address] [place] [address] (CLIA# [id number]). The technical component was performed by [facility] [address] (Private Security Guard: Vikki Cisse MD; CLIA# [id number]). Professional interpretation was performed by [facility], [address] [place] [address] [place] [address], [place], [place] [address] (CLIA# [id number]). Diagnostician: John Buckner MD Pathologist Electronically Signed 06/28/2019 Copies: ~ PATIENT NAME: CARLO MATHIAS PATHOLOGY DATE OF : 40 REPORT #: [id number] PHYSICIAN: CRISTAL PATHOLOGY PCP: TIFFANY BLACKMON MD REPORT IS CONFIDENTIAL AND NOT TO BE RELEASED WITHOUT AUTHORIZATION
== END 2019-06-24 18:00 | disposition home or self-care (01) ==
LOC: DS 07:05 → OPS 07:05 → EDSTATUS 09:00 → OPS 09:00 → NUC 09:00 → OPS 18:00
PROVIDERS: Surgery
PROC: 07B50ZX Excision of Right Axillary Lymphatic, Open Approach, Diagnostic (ICD-10-PCS; principal; 2019-06-24 11:00)
DX: C50.911 Malignant neoplasm of unspecified site of right female breast (principal); F32.9 Major depressive disorder, single episode, unspecified; E11.9 Type 2 diabetes mellitus without complications; I10 Essential (primary) hypertension; K74.60 Unspecified cirrhosis of liver; E03.9 Hypothyroidism, unspecified; K21.9 Gastro-esophageal reflux disease without esophagitis; Z79.84 Long term (current) use of oral hypoglycemic drugs; Z79.891 Long term (current) use of opiate analgesic; Z79.899 Other long term (current) drug therapy
CPT/HCPCS: 00404; 71046; 78195; A9541; J0690; J1100; J1170; J1644; J2001; J2405; J2704; J3010; J7121; Q9968

== ENCOUNTER 2020-08-12 10:58 | Emergency (ER) | payer OTHER, MEDICARE ==
[~2020-08-12] VITALS: Ht 162.6 cm; Wt 72.6 kg
[~2020-08-12 10:58] MED LIST changes: +HYDROCODON-ACE1 EA10 PO
== END 2020-08-12 13:51 | disposition home or self-care (01) ==
LOC: ED 10:58
DX: S70.01XA Contusion of right hip, initial encounter (principal); S80.01XA Contusion of right knee, initial encounter; W01.198A Fall on same level from slipping, tripping and stumbling with subsequent striking against other object, initial encounter; E11.9 Type 2 diabetes mellitus without complications; I10 Essential (primary) hypertension; Z79.899 Other long term (current) drug therapy; Z79.84 Long term (current) use of oral hypoglycemic drugs
CPT/HCPCS: 73502; 73560; 81001; 99283-25